=== PATIENT | male | born 1960 | race Hispanic/Latino ===

== ENCOUNTER → 2018-08-03 | Outpatient (CLI) | payer OTHER | END | disposition home or self-care (01) | LOC: RAH 12:32 | PROVIDERS: ATTEND Family Medicine | DX: I73.9 Peripheral vascular disease, unspecified (principal); I70.90 Unspecified atherosclerosis | CPT/HCPCS: 93925 ==

== ENCOUNTER → 2018-12-05 | Outpatient (CLI) | payer OTHER | END | disposition home or self-care (01) | LOC: OIH 13:13 | PROVIDERS: ATTEND Internal Medicine Cardiovascular Disease | DX: Z13.6 Encounter for screening for cardiovascular disorders (principal) | CPT/HCPCS: 75571 ==

== ENCOUNTER → 2019-01-11 | Outpatient (CLI) | payer OTHER ==
[~2019-01-11] VITALS: Ht 172.7 cm; Wt 109.3 kg
[~2019-01-11] MED LIST: REGADENOSON 0.4 MG/5 ML PF SYG IVP SCH
== END | disposition home or self-care (01) ==
LOC: SHCH 07:53
PROVIDERS: ATTEND Internal Medicine Cardiovascular Disease
DX: I25.10 Atherosclerotic heart disease of native coronary artery without angina pectoris (principal)
CPT/HCPCS: 78452; 93017; 96374; A9500 ×2; J2785

== ENCOUNTER 2021-03-05 05:47 | Day surgery (SDC) | payer OTHER ==
[2021-03-02 10:05] VITALS: BP 141/75
[~2021-03-05] VITALS: Ht 175.3 cm; Wt 113.0 kg
[~2021-03-05 05:47] MED LIST changes: +APIX2.5T PO; +ATOR40TA71 PO; +CLOT15C TP; +DULA1.5P SQ; +DULO60CA64 PO; +EMPA25TA PO; +ESOM40CA PO; +HYDR12.54 PO; +INSU3INS3 SQ; +IODOG TP; +LOSA25TA41 PO; +MELO10CA3 PO; +METF-446 PO; +METO-409 PO; +PREG75 PO; -REGADENOSON 0.4 MG/5 ML PF SYG IVP SCH
[2021-03-05] MEDS ORDERED: CEFAZOLIN SODIUM 1 GM VIAL ONE (06:04)
[2021-03-05] MEDS ORDERED: 0.9%NACL 1000ML 1,000 ML IV ONE (06:04)
[2021-03-05 06:10] VITALS: BP 174/97
[2021-03-05] MEDS ORDERED: INSU100I15 SQ (06:30)
[2021-03-05] MEDS ORDERED: CEFAZOLIN 3GM /D5W 100ML 100 ML IV SCH (07:00)
== END 2021-03-05 07:00 | disposition home or self-care (01) ==
LOC: DAH 05:47
PROVIDERS: ATTEND Neurological Surgery
DX: G56.01 Carpal tunnel syndrome, right upper limb (principal); Z20.822 Contact with and (suspected) exposure to COVID-19; Z53.8 Procedure and treatment not carried out for other reasons; Z79.899 Other long term (current) drug therapy
CPT/HCPCS: 82948; 87635; A4215; A4221; A4222; A4223; A4663; C9803; J7030; J0690

== ENCOUNTER 2021-03-17 05:52 | Day surgery (SDC) | payer OTHER ==
[2021-03-16 09:04] VITALS: BP 137/67
[2021-03-17] VITALS (17 sets, daily range): BP systolic 128–160; BP diastolic 73–87
[~2021-03-17] VITALS: Ht 175.3 cm; Wt 111.3 kg
[2021-03-17] MEDS: CEFAZOLIN SODIUM 1 GM VIAL IVP SCH ×2 (05:00→11:20)
[~2021-03-17 05:52] MED LIST changes: +ASPI-1197 PO; -CLOT15C TP; +INSU100I15 SQ; +INSU100V37 SQ; -IODOG TP; +METO-391 PO; -METO-409 PO; +RANO500T3 PO; +SANTO TP
[2021-03-17] MEDS ORDERED: 0.9%NACL 1000ML 1,000 ML IV ONE (06:50)
[2021-03-17] MEDS ORDERED: LIDOCAINE HCL-MPF 0.5% 50ML VIAL IJ ONE (07:00)
[2021-03-17] MEDS ORDERED: FENTANYL CITRATE PF 50 MCG/1 ML 2ML VIAL ONE ×2 (07:01→11:29)
[2021-03-17] MEDS ORDERED: MIDAZOLAM HCL 1 MG/ML 2ML VIAL ONE (07:01)
[2021-03-17] MEDS ORDERED: MEPERIDINE-PF 25 MG/ML SYG ONE (12:25)
== END 2021-03-17 14:05 | disposition home or self-care (01) ==
LOC: DAH 05:52
PROVIDERS: ATTEND Neurological Surgery
DX: G56.01 Carpal tunnel syndrome, right upper limb (principal); Z20.822 Contact with and (suspected) exposure to COVID-19; E11.22 Type 2 diabetes mellitus with diabetic chronic kidney disease; I12.9 Hypertensive chronic kidney disease with stage 1 through stage 4 chronic kidney disease, or unspecified chronic kidney disease; N18.9 Chronic kidney disease, unspecified; K21.9 Gastro-esophageal reflux disease without esophagitis; I25.10 Atherosclerotic heart disease of native coronary artery without angina pectoris; Z86.73 Personal history of transient ischemic attack (TIA), and cerebral infarction without residual deficits
CPT/HCPCS: 82948; 87635; 93005; C9803; J0690; J2175; J2250; J3010; J3490; J7030

== ENCOUNTER → 2022-06-24 | Outpatient (CLI) | payer OTHER ==
[~2022-06-24] MED LIST changes: -APIX2.5T PO; -DULA1.5P SQ; +DULA4.5P SQ; -DULO60CA64 PO; +ESCI-8 PO; -ESOM40CA PO; +FAMO40TA7 PO; +FURO20TA4 PO; +GABA-529 PO; -HYDR12.54 PO; +ICOS1CAP PO; -INSU100I15 SQ; +INSU100I40 SQ; -INSU100V37 SQ; +LISI2.5T13 PO; -LOSA25TA41 PO; -MELO10CA3 PO; +OMEP40CA21 PO; -PREG75 PO; +RIVA2.5T PO; -SANTO TP
[2022-06-24 12:30] LABS: CHOLESTEROL 75 mg/dL (<200); HDL CHOLESTEROL 23 mg/dL (29-71); LDL DIRECT 25 mg/dL (0-99); TRIGLYCERIDES 324 mg/dL (30-200)
== END | disposition home or self-care (01) ==
LOC: LAB 08:14
PROVIDERS: ATTEND Internal Medicine Cardiovascular Disease
DX: E78.5 Hyperlipidemia, unspecified (principal)
CPT/HCPCS: 36415; 80061

== ENCOUNTER → 2022-09-01 | Outpatient (CLI) | payer OTHER ==
[2022-09-01 13:27] LABS: BASOPHILS % (AUTO) 0.5 % (0.0-5.0); EOSINOPHILS % (AUTO) 2.5 % (0.0-8.0); LYMPHOCYTES % (AUTO) 13.1 % (21.0-51.0); MEAN CORPUSCULAR HEMOGLOBIN 24.9 pg (27.0-33.0); MEAN CORPUSCULAR HGB CONC 29.8 g/dL (32.0-36.0); MEAN CORPUSCULAR VOLUME 83.7 fL (79-99); MONOCYTES % (AUTO) 9.6 % (3.0-13.0); NEUTROPHILS % (AUTO) 73.4 % (40.0-77.0); PLATELET COUNT (AUTO) 220 K/uL (130-400); RED BLOOD CELL COUNT(AUTO) 5.26 MIL/uL (4.50-6.20); WHITE BLOOD COUNT (AUTO) 11.7 K/uL (4.8-10.8)
[2022-09-01 13:55] LABS: CREATININE 1.1 mg/dL (0.5-1.5); POTASSIUM 4.6 mmol/L (3.5-5.1); THYROID STIMULATING HORMONE 2.08 uIU/mL (0.36-3.74)
== END | disposition home or self-care (01) ==
LOC: LAB 10:36
PROVIDERS: ATTEND Internal Medicine Cardiovascular Disease
DX: I10 Essential (primary) hypertension (principal); I25.10 Atherosclerotic heart disease of native coronary artery without angina pectoris
CPT/HCPCS: 36415; 80048; 84443; 85025; 85378

== ENCOUNTER → 2022-09-08 | Outpatient (CLI) | payer OTHER ==
[~2022-09-08] MED LIST changes: +IOHEXOL 350 MG/ML 100ML INFUS..BTL IV ONE
== END | disposition home or self-care (01) ==
LOC: RAH 09:48
PROVIDERS: ATTEND Internal Medicine Cardiovascular Disease
DX: K44.9 Diaphragmatic hernia without obstruction or gangrene (principal)
CPT/HCPCS: 71275; Q9967

== ENCOUNTER 2022-09-17 08:41 | Emergency (ER) | payer OTHER ==
[~2022-09-17] VITALS: Ht 175.3 cm; Wt 105.2 kg
[~2022-09-17 08:41] MED LIST changes: -IOHEXOL 350 MG/ML 100ML INFUS..BTL IV ONE
[2022-09-17 09:05] LABS: BASOPHILS % (AUTO) 0.3 % (0.0-5.0); EOSINOPHILS % (AUTO) 1.4 % (0.0-8.0); HEMATOCRIT 44.8 % (42-54); LYMPHOCYTES % (AUTO) 7.1 % (21.0-51.0); MEAN CORPUSCULAR HGB CONC 30.4 g/dL (32.0-36.0); MEAN CORPUSCULAR VOLUME 82.2 fL (79-99); MONOCYTES % (AUTO) 9.6 % (3.0-13.0); NEUTROPHILS % (AUTO) 81.1 % (40.0-77.0); PLATELET COUNT (AUTO) 200 K/uL (130-400); RED BLOOD CELL COUNT(AUTO) 5.45 MIL/uL (4.50-6.20); RED CELL DISTRIBUTION WIDTH 16.8 % (11.0-15.5); WHITE BLOOD COUNT (AUTO) 15.8 K/uL (4.8-10.8)
[2022-09-17 09:21] LABS: CREATININE 1.4 mg/dL (0.5-1.5); POTASSIUM 4.6 mmol/L (3.5-5.1)
[2022-09-17 09:26] LABS: ALBUMIN 3.4 g/dL (3.5-5.0); TOTAL PROTEIN, SERUM 7.4 g/dL (6.0-8.3)
[2022-09-17] MEDS ORDERED: MORPHINE 2 MG SYG IVP SCH (10:00)
[2022-09-17] MEDS ORDERED: IBUP-1493 PO (10:49)
[2022-09-17] MEDS ORDERED: LIDOP TD (10:49)
[2022-09-17 10:59] VITALS: BP 110/76
== END 2022-09-17 11:27 | disposition home or self-care (01) ==
LOC: EDH 08:41
DX: M25.551 Pain in right hip (principal); I10 Essential (primary) hypertension; E11.9 Type 2 diabetes mellitus without complications; Z95.1 Presence of aortocoronary bypass graft; Z79.899 Other long term (current) drug therapy; Z79.82 Long term (current) use of aspirin; Z79.84 Long term (current) use of oral hypoglycemic drugs
CPT/HCPCS: 36415; 71045; 72100; 73502; 80053; 84484; 85025; 93005; 96374

== ENCOUNTER → 2022-12-02 | Outpatient (CLI) | payer OTHER ==
[~2022-12-02] MED LIST changes: +IBUP-1493 PO; +LIDOP TD
[2022-12-02 12:30] LABS: THYROID STIMULATING HORMONE 1.64 uIU/mL (0.36-3.74)
== END | disposition home or self-care (01) ==
LOC: LAB 08:16
PROVIDERS: ATTEND Internal Medicine Cardiovascular Disease
DX: I10 Essential (primary) hypertension (principal); E78.5 Hyperlipidemia, unspecified
CPT/HCPCS: 36415; 80061; 84439; 84443

== ENCOUNTER 2023-01-09 09:24 | Emergency (ER) | payer OTHER ==
[~2023-01-09] VITALS: Ht 175.3 cm; Wt 110.7 kg
[2023-01-09] MEDS ORDERED: MECLIZINE HCL 25 MG TABLET PO ONE (09:30)
[2023-01-09] MEDS ORDERED: ONDANSETRON 4MG INJ IVP ONE (09:30)
[2023-01-09 09:56] LABS: BASOPHILS % (AUTO) 0.7 % (0.0-5.0); EOSINOPHILS % (AUTO) 2.6 % (0.0-8.0); HEMATOCRIT 46.1 % (42-54); LYMPHOCYTES % (AUTO) 14.2 % (21.0-51.0); MEAN CORPUSCULAR HEMOGLOBIN 26.1 pg (27.0-33.0); MEAN CORPUSCULAR HGB CONC 30.8 g/dL (32.0-36.0); MEAN CORPUSCULAR VOLUME 84.6 fL (79-99); MONOCYTES % (AUTO) 10.8 % (3.0-13.0); NEUTROPHILS % (AUTO) 70.6 % (40.0-77.0); PLATELET COUNT (AUTO) 204 K/uL (130-400); RED BLOOD CELL COUNT(AUTO) 5.45 MIL/uL (4.50-6.20); RED CELL DISTRIBUTION WIDTH 15.1 % (11.0-15.5); WHITE BLOOD COUNT (AUTO) 9.4 K/uL (4.8-10.8)
[2023-01-09 10:10] LABS: INR 0.96 (0.85-1.15); PROTHROMBIN TIME 10.5 SEC (9.6-11.6)
[2023-01-09 10:11] LABS: PARTIAL THROMBOPLASTIN TIME 30.4 SEC (26.3-35.5)
[2023-01-09 10:22] LABS: ALBUMIN 3.8 g/dL (3.5-5.0); CREATININE 1.1 mg/dL (0.5-1.5); POTASSIUM 4.3 mmol/L (3.5-5.1); TOTAL PROTEIN, SERUM 7.7 g/dL (6.0-8.3)
[2023-01-09] MEDS ORDERED: ONDA4TAB10 PO (11:34)
[2023-01-09] MEDS ORDERED: MECL-160 PO (11:34)
[2023-01-09 12:03] VITALS: BP 132/78
[2023-01-09 12:32] LABS: B-TYPE NATRIURETIC PEPTIDE 76 pg/mL (0-100)
== END 2023-01-09 12:47 | disposition home or self-care (01) ==
LOC: EDH 09:24
DX: R42 Dizziness and giddiness (principal); R11.2 Nausea with vomiting, unspecified; R51.9 Headache, unspecified; Z79.82 Long term (current) use of aspirin; Z79.84 Long term (current) use of oral hypoglycemic drugs; Z79.899 Other long term (current) drug therapy; Z98.890 Other specified postprocedural states
CPT/HCPCS: 99285; 96374; 70450; 71045; 82550; 83721; 84484; 80053; 83880; 85025; 85610; 85730; 36415; 93005; J2405

== ENCOUNTER 2023-02-07 12:59 | Emergency (ER) | payer OTHER ==
[~2023-02-07] VITALS: Ht 175.3 cm; Wt 109.3 kg
[~2023-02-07 12:59] MED LIST changes: -INSU100I40 SQ; +INSU100I56 SQ; +MECL-160 PO; +ONDA4TAB10 PO
[2023-02-07] MEDS ORDERED: PREDNISONE 20 MG TABLET PO ONE (15:00)
[2023-02-07] MEDS ORDERED: DIAZEPAM 5 MG TABLET PO ONE (15:00)
[2023-02-07] MEDS ORDERED: HYDROCODONE/ACETAMINOPHEN 5/325 MG TAB PO ONE (15:00)
[2023-02-07] MEDS ORDERED: KETOROLAC 60 MG VIAL (30MG/ML) IM ONE (15:00)
[2023-02-07 15:40] VITALS: BP 105/68
[2023-02-07] MEDS ORDERED: METH-811 PO (17:20)
[2023-02-07] MEDS ORDERED: PRED20TA3 PO (17:20)
[2023-02-07] MEDS ORDERED: IBUP-2070 PO (17:20)
== END 2023-02-07 17:47 | disposition home or self-care (01) ==
LOC: EDH 12:59
DX: G89.29 Other chronic pain (principal); M54.42 Lumbago with sciatica, left side; M54.41 Lumbago with sciatica, right side; I10 Essential (primary) hypertension; E11.9 Type 2 diabetes mellitus without complications; K21.9 Gastro-esophageal reflux disease without esophagitis; Z79.4 Long term (current) use of insulin; Z79.84 Long term (current) use of oral hypoglycemic drugs; Z79.82 Long term (current) use of aspirin; Z79.899 Other long term (current) drug therapy
CPT/HCPCS: 99284; 72100; 96372; J1885

== ENCOUNTER 2023-03-24 11:21 | Emergency (ER) | payer OTHER ==
[~2023-03-24] VITALS: Ht 175.3 cm; Wt 105.2 kg
[~2023-03-24 11:21] MED LIST changes: +CYCL10TA16 PO; +HYDR-4060 PO; -IBUP-1493 PO; +IBUP-2070 PO; -LIDOP TD; -MECL-160 PO; +MELO-106 PO; +METH-811 PO; -ONDA4TAB10 PO; +TAMSULOSIN PO; +TIZA-194 PO; +TRAZ-253 PO; +[UNRECOGNIZED DRUG - CODE] SQ
[2023-03-24 12:14] VITALS: BP 92/58; PULSE 99; RESP 16; O2SAT 99
[2023-03-24] MEDS ORDERED: PREDNISONE 20 MG TABLET PO ONE (14:30)
[2023-03-24] MEDS ORDERED: DIAZEPAM 5 MG TABLET PO ONE (14:30)
[2023-03-24] MEDS ORDERED: HYDROCODONE/ACETAMINOPHEN 5/325 MG TAB PO ONE (14:30)
[2023-03-24] MEDS ORDERED: IBUPROFEN 600 MG TABLET PO ONE (14:30)
[2023-03-24] MEDS ORDERED: ONDANSETRON ODT 4MG TAB SL ONE (14:30)
[2023-03-24] MEDS ORDERED: METH-811 PO (15:28)
[2023-03-24] MEDS ORDERED: PRED20TA3 PO (15:28)
== END 2023-03-24 15:43 | disposition home or self-care (01) ==
LOC: EDH 11:21
DX: G89.29 Other chronic pain (principal); M54.9 Dorsalgia, unspecified; M79.604 Pain in right leg; I10 Essential (primary) hypertension; E11.9 Type 2 diabetes mellitus without complications; E78.00 Pure hypercholesterolemia, unspecified; Z79.84 Long term (current) use of oral hypoglycemic drugs; Z79.899 Other long term (current) drug therapy; Z98.890 Other specified postprocedural states

== ENCOUNTER 2023-04-24 11:15 | Emergency (ER) | payer OTHER ==
[~2023-04-24] VITALS: Ht 175.3 cm; Wt 110.7 kg
[~2023-04-24 11:15] MED LIST changes: +PRED20TA3 PO
[2023-04-24] MEDS ORDERED: ONDANSETRON 4MG INJ IVP ONE (12:00)
[2023-04-24] MEDS ORDERED: MORPHINE 4 MG SYG IVP ONE (12:00)
[2023-04-24 12:02] LABS: BASOPHILS # (AUTO) 0.05 K/uL (0.00-0.20); BASOPHILS % (AUTO) 0.6 % (0.0-5.0); EOSINOPHILS # (AUTO) 0.14 K/uL (0.00-0.70); EOSINOPHILS % (AUTO) 1.6 % (0.0-8.0); HEMATOCRIT 44.3 % (42-54); IMMATURE GRANULOCYTE ABSOLUTE 0.13 K/uL (0-1); LYMPHOCYTES # (AUTO) 1.2 K/uL (1.0-4.8); LYMPHOCYTES % (AUTO) 13.2 % (21.0-51.0); MEAN CORPUSCULAR HEMOGLOBIN 27.5 pg (27.0-33.0); MEAN CORPUSCULAR HGB CONC 32.3 g/dL (32.0-36.0); MEAN CORPUSCULAR VOLUME 85.2 fL (79-99); MONOCYTES # (AUTO) 0.9 K/uL (0.1-1.0); MONOCYTES % (AUTO) 10.8 % (3.0-13.0); NEUTROPHILS # (AUTO) 6.3 K/uL (1.8-7.7); NEUTROPHILS % (AUTO) 72.3 % (40.0-77.0); PLATELET COUNT (AUTO) 211 K/uL (130-400); RED CELL DISTRIBUTION WIDTH 15.8 % (11.0-15.5); WHITE BLOOD COUNT (AUTO) 8.7 K/uL (4.8-10.8)
[2023-04-24 12:20] LABS: ALBUMIN 3.5 g/dL (3.5-5.0); BILIRUBIN,TOTAL 0.5 mg/dL (0.2-1.0); CREATININE 1.2 mg/dL (0.5-1.5); TOTAL PROTEIN, SERUM 7.3 g/dL (6.0-8.3)
[2023-04-24] MEDS ORDERED: 0.9% NACL 500ML IV.SOLN 500 ML IV ONE (12:30)
[2023-04-24] MEDS ORDERED: DEXAMETHASONE SOD PHOSPHATE 4 MG/ML 1ML VIAL IVP ONE (13:00)
[2023-04-24] MEDS ORDERED: DIAZEPAM 5 MG/ML 2 ML SYG IV ONE (13:30)
[2023-04-24] MEDS ORDERED: LIDOP TP (15:01)
[2023-04-24] MEDS ORDERED: METH-811 PO (15:01)
[2023-04-24 15:28] VITALS: BP 135/69; PULSE 97; RESP 18; O2SAT 98
== END 2023-04-24 15:28 | disposition home or self-care (01) ==
LOC: EDH 11:15
DX: M48.00 Spinal stenosis, site unspecified (principal); M54.41 Lumbago with sciatica, right side
CPT/HCPCS: 99284; 96374; 96375; 71046; 96361; 80053; 83690; 85025; 36415; 71100; J1100; J7040; J3360; J2405; J2270

== ENCOUNTER → 2023-12-14 | Outpatient (CLI) | payer OTHER ==
[~2023-12-14] MED LIST changes: +LIDOP TP
[2023-12-14 12:08] LABS: CREATININE 0.9 mg/dL (0.5-1.3); POTASSIUM 4.6 mmol/L (3.5-5.1)
== END | disposition home or self-care (01) ==
LOC: LAB 08:23
PROVIDERS: ATTEND Internal Medicine Cardiovascular Disease
DX: I10 Essential (primary) hypertension (principal)
CPT/HCPCS: 36415; 80048

== ENCOUNTER → 2024-08-21 | Outpatient (CLI) | payer OTHER ==
[~2024-08-21] MED LIST changes: -CYCL10TA16 PO; -FURO20TA4 PO; -GABA-529 PO; +GABA300S3 PO; -HYDR-4060 PO; -IBUP-2070 PO; -ICOS1CAP PO; +INSU100V46 SQ; -INSU3INS3 SQ; +IOHEXOL 350 MG/ML 100ML INFUS..BTL IV ONE; -LISI2.5T13 PO; -MELO-106 PO; -METH-811 PO; -METO-391 PO; +MULT-1224 PO; -OMEP40CA21 PO; -PRED20TA3 PO; -RANO500T3 PO; -TAMSULOSIN PO; -TIZA-194 PO; -[UNRECOGNIZED DRUG - CODE] SQ
--- NOTE | 2024-08-21 14:55 | HMCIMG ---
CT CHEST W/WO CONTRAST REASON: ABN FINDINGS IN LUNG FIELD COMPARISON: 09/08/2022. TECHNIQUE: Images are obtained from thoracic inlet through the lung bases following IV contrast, 100 cc Omnipaque 350. TECHNIQUE: Multiple sequential axial images of the chest were obtained from the thoracic inlet through the upper pole of the kidneys without intravenous contrast administration. FINDINGS: There are 2 adjacent focal nodules in the peripheral portion superior segment of the right lower lobe. The largest measures between 6 and 7 mm, the smaller nodule measures 2 mm. These were present on previous exam 09/08/2022 and are unchanged. There are no other focal nodules. There is normal-appearing pulmonary interstitial pattern. There is no bronchiectasis or honeycombing. There are no pleural effusions. Contrast outlines normal appearing hilar and mediastinal structures. There is no mass or lymphadenopathy. There is been previous median sternotomy. Chest wall appears otherwise normal. Visualized upper abdominal structures appear unremarkable. IMPRESSION: 1. 2 adjacent subcentimeter nodules, largest 6 mm, these are unchanged compared to prior study February the graft 2. Otherwise unremarkable pre and post contrast CT chest. rformed with one or more following dose reduction techniques: automated exposure control, adjustment of the mA and kv according to patient's size, or use of a iterative reconstruction technique.
== END | disposition home or self-care (01) ==
LOC: RAH 09:24
PROVIDERS: ATTEND Family Medicine
DX: R91.8 Other nonspecific abnormal finding of lung field (principal)
CPT/HCPCS: 71270; Q9967

== ENCOUNTER 2024-10-24 17:46 | Emergency (ER) | payer OTHER ==
[~2024-10-24] VITALS: Ht 175.3 cm; Wt 110.2 kg
[~2024-10-24 17:46] MED LIST changes: -IOHEXOL 350 MG/ML 100ML INFUS..BTL IV ONE
--- NOTE | 2024-10-24 18:08 | ERN ---
ED Note History of Present Illness Stated Complaint: PAIN NEAR COLLAR BONE Time Seen by MD: 18:02 Time Seen by Midlevel: 18:08 Dictation: Mr. Rea is a 64 year old gentleman with history of CAD/CABG, hypertension, hyperlipidemia, type II DM, GERD, chronic back pain, and obesity who presented to the emergency department this evening for evaluation of right anterior chest pain. He states that for several years he has been having pain to right collar bone. He states Tuesday he started having some pain and was using some topical analgesics. States he woke up this morning with swelling to the area with pain radiating to the right scapula. He denies having any trauma, substernal chest pain, palpitations, edema, shortness of breath, cough abdominal pain, nausea, vomiting, diarrhea, dysuria, headache, or dizziness. PCP: Dr. Hebert Schultz Lead Systems Analyst: Dr. Adolph Olivia Allergies: Coded Allergies: No Known Drug Allergies (Unverified Allergy, Unknown, 03/05/21) Home Meds Active Scripts Lidocaine (Lidoderm Patch 5%) 1 Patch Patch, 1 PATCH TP [id number] PRN for PAIN, #5 ADH.PATCH Prov:SAVANAH SUMMERS BACKBREAKER 04/24/23 Reported Medications Gabapentin (Gabapentin) 300 Mg/6 Ml (6 Ml) Solution, 300 MG PO TID, ML 08/06/24 Insulin Lispro-Aabc (Lyumjev) 100 Unit/Ml Vial, 25 UNIT SQ TIDMEALS, VIAL 08/06/24 Multivits-Minerals/FA/Lycopene (One Daily Men's Health Tablet) 0.4 Mg-600 Mcg Tablet, 1 TAB PO DAILY for 30 Days, #30 TAB 0 Refills 08/06/24 Insulin Lispro (Insulin Lispro Kwikpen U-100) 100 Unit/Ml Insuln.pen, 20 UNIT SQ DAILY, SYRINGE 08/06/24 Trazodone HCl (Desyrel) 50 Mg Tab, 1 TAB PO HS 02/19/23 Atorvastatin Calcium (Atorvastatin Calcium) 40 Mg Tablet, 80 MG PO AM, TAB 05/17/22 Dulaglutide (Trulicity) 4.5 Mg/0.5 Ml Pen.injctr, 4.5 MG SQ weekly 05/17/22 Rivaroxaban (Xarelto) 2.5 Mg Tablet, 2.5 MG PO BID, TAB 04/06/22 Empagliflozin (Jardiance) 25 Mg Tablet, 25 MG PO DAILY, TAB 04/06/22 Escitalopram Oxalate (Escitalopram Oxalate) 10 Mg Tablet, 10 MG PO DAILY, TAB 04/06/22 Famotidine (Famotidine) 40 Mg Tablet, 40 MG PO HS, TAB 04/06/22 Aspirin (Aspirin) 81 Mg Tab.chew, 81 MG PO DAILY, TAB.CHEW 03/16/21 Metformin HCl (Metformin HCl) 1,000 Mg Tablet, 1000 MG PO BID, TAB 03/04/21 Past Medical History Past Medical History: CAD, Diabetes-Type II, High Cholesterol, Heart Disease, Hypertension Additional Past Medical Hx: ACID REFLUX, CHRONIC BACK PAIN Surgical History: CABG, Other Surgical History Other: BACK. TOE, RIGHT WRIST Family History: Negative Social History: Negative, Lives with family Review of System Dictation REVIEW OF SYSTEMS: CONSTITUTIONAL: Patient denies fevers, chills, sweats and weight changes. EYES: Patient denies any visual symptoms. EARS, NOSE, AND THROAT: No difficulties with hearing. No symptoms of rhinitis or sore throat. CARDIOVASCULAR: Patient denies chest pains, palpitations, orthopnea and paroxysmal nocturnal dyspnea. RESPIRATORY: No dyspnea on exertion, no wheezing or cough. GI: No nausea, vomiting, diarrhea, constipation, abdominal pain, hematochezia or melena. : No urinary hesitancy or dribbling. No nocturia or urinary frequency. No abnormal urethral discharge. MUSCULOSKELETAL: Reports pain right clavicle with swelling. States pain radiates to right scapula NEUROLOGIC: No chronic headaches, no seizures. Patient denies numbness, tingling or weakness. PSYCHIATRIC: Patient denies problems with mood disturbance. No problems with anxiety. ENDOCRINE: No excessive urination or excessive thirst. DERMATOLOGIC: Patient denies any rashes or skin changes. Initial Vital Sign VS Vital Signs Date Time Temp Pulse Resp B/P (MAP) Pulse Ox O2 Delivery O2 Flow Rate FiO2 10/24/24 19:33 98.1 104 20 118/72 98 Room Air 0 Physical Exam Dictation Vital signs: Reviewed. Constitutional: No acute distress. Non-toxic appearing. Head/Face: Normocephalic, atraumatic. Eyes: Periorbital areas with no swelling, redness, or edema. Lids and lashes are normal. Conjunctival injection is absent. Sclera anicteric. Pupils equal, round, reactive to light. ENT: Pinnas intact and no signs of trauma or erythema. Ear canals clear and no discharge. TMs no erythema. No nasal discharge or bleeding noted. Oropharynx with no exudate, redness, swelling, masses, exudates, or evidence of obstruction. Uvula midline. Mucous membranes moist. Neck: Trachea midline, no masses palpated, and no cervical lymphadenopathy. No swelling. Supple, full range of motion. Chest/Axilla: No tenderness, no crepitus, no paradoxical movement, no retractions. There is swelling to right anterior chest at the clavicle very tender to palpation. Cardiovascular: Regular rate, regular rhythm, no murmur, no gallops. Symmetric pulses. No peripheral edema. Respiratory: Respirations even and unlabored. Lung sounds clear; no wheezes, rales or rhonchi. Gastrointestinal: Inspection is normal. No distention is appreciated. Bowel sounds are normal. No mass or organomegaly . There is no tenderness. No rebound. No rigidity. No voluntary or involuntary guarding. No Hernandez's sign. Neurological: Normal speech, gross motor function intact, gross sensory function intact. No focal weakness/Paresthesia. Musculoskeletal/Extremities: All extremities have full range of motion, no pain or tenderness on palpation. Symmetric pulses. Integumentary: Intact. Skin is normal color, warm and dry. Cap refill less than 3 seconds. Results (Laboratory/Radiology) X-RAY Comment: PATIENT: HEBERT REA MR#: [id number] : 1960 SEX: M AGE: 64 LOCATION: ED ORDER 07 STATUS: [facility] REPORT#: [id number] SERVICE 04 REASON: clavicle pain ORDERING PHYSICIAN: DENILSON BUTLER NP PROCEDURE: CXR1VW - CHEST 1VW PORTABLE CHEST RADIOGRAPH INDICATION: clavicle pain COMPARISON: None FINDINGS: Median sternotomy wires as well as fixation plates and screws are in appropriate alignment. Heart size is normal. The pulmonary vascularity and cammie appear normal. No abnormal pulmonary parenchymal opacity or consolidation identified. No significant pleural effusion noted. No pneumothorax detected. IMPRESSION: No radiographic evidence for any acute cardiopulmonary process. Intact bilateral clavicles. DICTATED BY: MAGDI MATAMOROS MD DATE: 10/24/241840 ELECTRONICALLY SIGNED BY: MAGDI MATAMOROS MD DATE: 10/24/241843 ED Course ED Course Orders Procedure Category Date Status Time Chest 1vw RAD 10/24/24 Resulted 18:05 Hydrocodone/Apap PHA 10/24/24 Complete 5/325 ([place] 5/325mg) 18:30 Current Medications Medications (Trade) Dose Ordered Sig/Sharif Route PRN Reason Start Time Stop Time Status Last Admin Dose Admin Acetaminophen/ Hydrocodone Bitart (NORco 5/325MG) 1 tab ONCE ONCE PO 10/24/24 18:30 10/24/24 18:31 DC Vital Signs Date Time Temp Pulse Resp B/P (MAP) Pulse Ox O2 Delivery O2 Flow Rate FiO2 10/24/24 19:33 98.1 104 20 118/72 98 Room Air 0 Uneventful ED course. Vital signs stable. X-ray of the chest negative for clavicle fracture no acute findings. He received dose [place] x1 for discomfort and triage nurse applied a sling to the right upper extremity which he said made the pain decreased. He has good color, warmth, movement, and sensation to his right fingers. Continues with some swelling over the right clavicle which is soft. There is no erythema, warmth, or open wound. There is no tenderness to the rest of the chest. You will be discharged home with follow up with his primary care physician. Medical Decision Making MDM MDM: Differential diagnosis: Clavicle fracture, contusion, osteoarthritis Rationale: Tests considered and ordered secondary to shared decision making include: X-ray Previous outside records reviewed: Old ER visits. Risk of complication and/or morbidity or mortality of patient management: None Medications-Per medication reconciliation Need for hospitalization: Patient does not meet criteria for hospitalization. Need for emergency major/minor surgery: No There are no social concerns with this patient. Prescription drug management: OTC Tylenol or ibuprofen, tramadol Prescriptions will include symptomatic care Patient's prior external medical records from other ER visits were reviewed by me as indicated. Prior testing and results from previous visits were reviewed. Prior tests were taken into account with medical decision making and resource utilization, independent historian/historians were used to obtain complete medical history. I independently interpreted the test that were performed, results were reviewed by me and considered findings on radiology if ordered. Medical management and examination interpretation discussions were had by me with other qualified healthcare professionals as indicated for the patient's care. DX & DISP Disposition: Discharge Departure Impression: Primary Impression: Clavicle pain Condition: Stable Scripts Tramadol HCl/Acetaminophen (Tramadol-Acetaminophn 37.5-325) 37.5 Mg-325 Mg Tablet 1 EACH PO q12 hours PRN, #6 TAB 0 Refills Prov: DENILSON BUTLER NP 10/24/24 Tramadol HCl/Acetaminophen (Tramadol-Acetaminophn 37.5-325) 37.5 Mg-325 Mg Tablet 1 EACH PO q 12 hours PRN, #6 TAB 0 Refills Prov: DENILSON BUTLER NP 10/24/24 Additional Instructions: Rest. Gentle mcrzy-qc-tnmihs exercises. Worsening if it provides you comfort. Ice or heat therapy. Hgca-asa-svibhae Tylenol or ibuprofen as needed for discomfort. Tramadol for severe pain. Follow up with your primary care physician later this week for further management. Referrals: HEBERT SCHULTZ MD (PCP) Time of Disposition: 19:41 DENILSON BUTLER NP Oct 24, 2024 18:08
--- NOTE | 2024-10-24 18:44 | HMCIMG ---
PORTABLE CHEST RADIOGRAPH INDICATION: clavicle pain COMPARISON: None FINDINGS: Median sternotomy wires as well as fixation plates and screws are in appropriate alignment. Heart size is normal. The pulmonary vascularity and cammie appear normal. No abnormal pulmonary parenchymal opacity or consolidation identified. No significant pleural effusion noted. No pneumothorax detected. IMPRESSION: No radiographic evidence for any acute cardiopulmonary process. Intact bilateral clavicles.
[2024-10-24 19:33] VITALS: BP 118/72; PULSE 104; RESP 20; TEMP 98
--- NOTE | 2024-10-24 19:37 | NUR ---
PATIENT PROVIDED WITH RIGHT ARM SLING AT THIS TIME
[2024-10-24] MEDS ORDERED: TRAM-543 PO ×2 (19:42→19:43)
[2024-10-24] MEDS: HYDROcodone/APAP 5/325 1 TAB TABLET PO ONE (21:28)
== END 2024-10-24 21:33 | disposition home or self-care (01) ==
LOC: EDH 17:46
DX: M25.511 Pain in right shoulder (principal); E11.9 Type 2 diabetes mellitus without complications; E78.00 Pure hypercholesterolemia, unspecified; I10 Essential (primary) hypertension; I25.10 Atherosclerotic heart disease of native coronary artery without angina pectoris; Z79.01 Long term (current) use of anticoagulants; Z79.4 Long term (current) use of insulin; Z79.82 Long term (current) use of aspirin; Z79.84 Long term (current) use of oral hypoglycemic drugs; Z79.85 Long-term (current) use of injectable non-insulin antidiabetic drugs; Z79.899 Other long term (current) drug therapy; Z95.1 Presence of aortocoronary bypass graft
CPT/HCPCS: 71045; 99283

== ENCOUNTER → 2024-12-04 | Outpatient (CLI) | payer OTHER ==
[~2024-12-04] MED LIST changes: +TRAM-543 PO
[2024-12-04] MEDS: REGADENOSON 0.4 MG/5 ML PF SYG IVP ONE (12:25)
--- NOTE | 2024-12-05 08:34 | HMCSR ---
APPROVED REPORT Height: 5 ft 8in Weight: 240 lbs TEST INDICATIONS OTHER FORMS DYSPNEA The imaging protocol used to acquire images was Rest Tc-99m/stress Tc-99m 1 day Consent: The procedure was explained and understood by the patient. Informerd consent was witnessed Stephanie CHRISTIAN RN First, low dose rest was performed then high dose stress. RESTING DATA: The resting ekg shows: NSR Rest SPECT myocardial perfusion imaging was performed in supine position 88 minutes following the int ravenous injection of 10.2 mCi of Tc-99 Sestamibi. Time of rest injection: 09:23: Date: 12/04/2024 Time of rest imagin:51: Date: 12/04/2024 PHARMACOLOGIC STRESS: Pharmacologic stress test was performed by injecting regadenoson 0.4 mg IV push followed by the intra venous injection of 30.4 mCi of Tc-99 Sestamibi. Time of stress injection: 11:32: Date: 12/04/2024 Time of stress imagin:44: Date: 12/04/2024 Heart Rate at time of stress injection: 92 bpm. Gated Stress SPECT was performed 72 minutes after stress injection. The images were gated to evaluate regional wall motion and calculate left ventricular ejection fracti on. STRESS DETAILS Reason for Termination: Infusion complete Stress Symptoms: Dyspnea, Chest discomfort Max HR Achieved: 99 bpm % of APMHR Achieved: 64 Max Blood Pressure: 122/72 mmHg Stress ECG: NSR Conclusion Partially reversible inferior defect consistent with infarct wiith periinfarct ischemia Lateral ischemia LV ejection fraction 40% Inferior hypokinesis No increased lung uptake Normal LV size at rest and stress
== END | disposition home or self-care (01) ==
LOC: SHCH 08:35
PROVIDERS: ATTEND Internal Medicine Cardiovascular Disease
DX: I25.9 Chronic ischemic heart disease, unspecified (principal); R06.09 Other forms of dyspnea; R07.89 Other chest pain
CPT/HCPCS: 78452; 93017; J2785; A9500 ×2

== ENCOUNTER 2025-02-07 05:39 | Day surgery (SDC) | payer OTHER ==
[2025-02-05 08:54] LABS: IMMATURE GRANULOCYTE ABSOLUTE 0.05 K/uL (0-1); NUCLEATED RED BLOOD CELLS 0.0 % (0.0-0.19); PLATELET COUNT (AUTO) 191 K/uL (130-400); RED BLOOD CELL COUNT(AUTO) 5.32 MIL/uL (4.50-6.20); RED CELL DISTRIBUTION WIDTH 16.9 % (11.0-15.5); WHITE BLOOD COUNT (AUTO) 8.9 K/uL (4.8-10.8)
[2025-02-05 08:57] VITALS: BP 102/55; PULSE 101; RESP 17; TEMP 97.9
[2025-02-05 09:07] LABS: APPEARANCE,URINE CLEAR (CLEAR); GLUCOSE, URINE (UA) >=1000 mg/dL (NEGATIVE); LEUKOCYTE ESTERASE ,URINE NEGATIVE Leu/uL (NEGATIVE); NITRATE,URINE NEGATIVE (NEGATIVE); OCCULT BLOOD,URINE NEGATIVE (NEGATIVE)
[2025-02-05 09:10] LABS: INR 0.99 (0.85-1.15)
[2025-02-05 09:20] LABS: CREATININE 1.3 mg/dL (0.5-1.3); GLOMERULAR FILTR. RATE CALC 61.0 mL/min (>90); GLUCOSE,RANDOM 250.0 mg/dL (70-105); SODIUM SERUM 139.0 mmol/L (136-145); UREA NITROGEN, BLOOD 29.0 mg/dL (7-18)
[2025-02-05 09:31] LABS: ADD UA MICROSCOPIC YES
--- NOTE | 2025-02-05 09:38 | EKG ---
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
[2025-02-05 09:42] LABS: SQUAMOUS EPITHELIAL CELL,UR RARE /HPF (0-2)
--- NOTE | 2025-02-05 09:57 | NUR ---
clarified spoke with annamarie karimi electrician telephone for clarification on med instructions written on order sheet. pt stopped taking blood thinners since tuesday. pt to hold metformin and jardiance 2 days prior and hold asa and xerelto morning of procedure. pt informed to resume blood thinners and hold morning of procedure and also informed to hold jardiance and metformin starting today. pt voiced understanding
--- NOTE | 2025-02-06 03:41 | HMCIMG ---
EXAM: CR Chest, 1 view CLINICAL HISTORY: Preoperative evaluation. COMPARISON: None provided. FINDINGS: The lungs show no infiltrates or other acute findings. No pleural effusion or pneumothorax. The cardiomediastinal silhouette is within normal limits. Status poststernotomy. No acute osseous abnormality. IMPRESSION: No acute cardiopulmonary process is evident. /[place]
[2025-02-07] VITALS (12 sets, daily range): BP systolic 110–133; BP diastolic 54–68; PULSE 83–91; RESP 10–19; TEMP 97.5–97.6
[~2025-02-07] VITALS: Ht 175.3 cm; Wt 108.5 kg
[~2025-02-07 05:39] MED LIST changes: +ACAR25TA2 PO; +ATOR-2 PO; -ATOR40TA71 PO; +DULO30CA52 PO; +ESOM40CA66 PO; -INSU100I56 SQ; +INSU3INS3 SQ; -LIDOP TP; +LOSA25TA41 PO; +METO-408 PO; +NITR0.4T50 SL; -TRAM-543 PO; -TRAZ-253 PO; +[UNRECOGNIZED DRUG - OTHER] PO
[2025-02-07] MEDS ORDERED: LIDOCAINE HCL 400MG/20ML VIAL ONE (07:11)
[2025-02-07] MEDS ORDERED: HEParin-NS 1,000 UNIT/500 ML 1,000 ML IV ONE (07:11)
[2025-02-07] MEDS ORDERED: MIDAZOLAM HCL 1 MG/ML 2ML VIAL ONE (07:11)
[2025-02-07] MEDS ORDERED: NITROGLYCERIN 50MG VIAL ONE (07:15)
[2025-02-07] MEDS ORDERED: IOHEXOL 350 MG/ML 100ML INFUS..BTL IV ONE (07:18)
[2025-02-07] MEDS ORDERED: IOHEXOL-350 50ML VIAL IV ONE (07:26)
[2025-02-07] MEDS ORDERED: GLUCAGON 1MG KIT 1 MG ML IM PRN (08:30)
[2025-02-07] MEDS ORDERED: DEXTROSE 50%-WATER 50 ML DISP.SYRIN IV PRN (08:30)
--- NOTE | 2025-02-28 09:32 | PRN ---
Cath Procedure Report CATH PROCEDURE REPORT CARDIAC CATHETERIZATION REPORT Date of Service: Feb 28, 2025 After informed consent the patient was prepped and draped in the usual fashion. He received a total of 15 cc of xylocaine in the right inguinal area. A six [place] sheath was introduced into the right femoral artery using modified Seldinger technique. A Jaimee four left six [place] diagnostic catheter was advanced over guidewire to the aortic root. Wire was removed and catheter engaged in the left main coronary artery. The left coronary system was visualized. The catheter was removed and a Jaimee four right six [place] diagnostic catheter was advanced over guidewire to the aortic root. Wire was removed and catheter engaged into the lumbee right coronary artery which was visualized multiple planes. The catheter was then manipulated to the origin of the saphenous graft to the PDA which was visualized. The catheter was then manipulated to the origin of the diagonal artery which was visualized catheter was then manipulated to the origin of the saphenous graft to the posterolateral branch which was found to be occluded. The catheter was then manipulated to the origin of the CHO graft to the LAD which was visualized in multiple planes. Postprocedure a sheathogram was performed and Angio-Seal closure device applied. The entire procedure was well tolerated without complications. Findings: The right coronary artery is a right-dominant vessel. It is free of obstruction. The PDA is occluded and fills via a patent saphenous graft. The posterolateral branch is free of obstruction and the saphenous graft to the posterolateral branch has a occluded likely due to progression of disease. The left main coronary artery is free of obstruction the proximal LAD and proximal circumflex artery are both totally occluded. There was a patent saphenous graft to the diagonal artery and a patent CHO graft to the LAD. The LAD distally is a very small caliber vessel. The circumflex artery was not visualized beyond the occlusion. In summary 3/4 grafts patent and medical management advised. Report dictated by JOSE Hook MD, MD Feb 28, 2025 09:32
== END 2025-02-07 13:13 | disposition home or self-care (01) ==
LOC: DAH 05:39
PROVIDERS: ATTEND Internal Medicine Cardiovascular Disease
DX: R94.39 Abnormal result of other cardiovascular function study (principal); I25.118 Atherosclerotic heart disease of native coronary artery with other forms of angina pectoris; I25.810 Atherosclerosis of coronary artery bypass graft(s) without angina pectoris; R06.09 Other forms of dyspnea; K21.9 Gastro-esophageal reflux disease without esophagitis; I10 Essential (primary) hypertension; E78.5 Hyperlipidemia, unspecified; E11.51 Type 2 diabetes mellitus with diabetic peripheral angiopathy without gangrene; Z98.890 Other specified postprocedural states; Z79.82 Long term (current) use of aspirin; Z79.01 Long term (current) use of anticoagulants; Z79.899 Other long term (current) drug therapy
CPT/HCPCS: 80048; 83880; 85025; 85610; 85730; 81001; 36415; 71045; 93005; 93459; 82948; 99156; 99157 ×2; C1894; C1760; J3490 ×2; J2250; J1644; Q9967; A4215 ×2; A4222 ×2; A4663 ×2; A4216 ×2; Q9965 ×2; A4223 ×6; A4554 ×2; A4335 ×2; A4221 ×2; A4606 ×2

== ENCOUNTER 2025-03-13 17:52 | Emergency (ER) | payer OTHER ==
[~2025-03-13] VITALS: Ht 175.3 cm; Wt 110.2 kg
--- NOTE | 2025-03-13 18:07 | ERN ---
ED Note History of Present Illness Stated Complaint: HEADACHES Chief Complaint: Headache Time Seen by MD: 18:03 Dictation: Patient is a 64-year-old male here with a generalized headache onset was one week ago. He states he was moving furniture when he hit the left occiput on a piece of furniture. No LOC no nausea vomiting he does take Xarelto. States he has had not had anything prior to arrival for pain and just came in because his told him he better have it checked out. NIH is 0 gait is steady to triage. No renee or raccoon sign no hemotympanum in triage Allergies: Coded Allergies: No Known Drug Allergies (Unverified Allergy, Unknown, 03/05/21) Home Meds Reported Medications Nitroglycerin (Nitroglycerin) 0.4 Mg Tab.subl, 0.4 MG SL AD PRN for CHEST PAIN, TAB.SL 02/05/25 Insulin Glargine,Hum.rec.anlog (Lantus Solostar) 100 Unit/Ml (3 Ml) Insuln.pen, 55 UNIT SQ AM, SYRINGE 02/05/25 [omega 3 mini] No Conflict Check, 1 CAP PO DAILY 02/05/25 Esomeprazole Magnesium (Esomeprazole Magnesium) 40 Mg Capsule.dr, 40 MG PO AM, CAP 02/05/25 Losartan Potassium (Losartan Potassium) 25 Mg Tablet, 25 MG PO HS, TAB 02/05/25 Duloxetine HCl (Duloxetine HCl) 30 Mg Capsule.dr, 30 MG PO AM, CAP 02/05/25 Acarbose (Acarbose) 25 Mg Tablet, 25 MG PO TID, TAB 02/05/25 Metoprolol Succinate (Metoprolol Succinate) 25 Mg Tab.er.24h, 25 MG PO AM, TAB 02/05/25 Atorvastatin Calcium (Atorvastatin Calcium) 80 Mg Tablet, 80 MG PO AM, TAB 02/05/25 Gabapentin (Gabapentin) 300 Mg/6 Ml (6 Ml) Solution, 300 MG PO TID, ML 08/06/24 Insulin Lispro-Aabc (Lyumjev) 100 Unit/Ml Vial, 35 UNIT SQ TIDMEALS, VIAL 08/06/24 Multivits-Minerals/FA/Lycopene (One Daily Men's Health Tablet) 0.4 Mg-600 Mcg Tablet, 1 TAB PO DAILY for 30 Days, #30 TAB 0 Refills 08/06/24 Dulaglutide (Trulicity) 4.5 Mg/0.5 Ml Pen.injctr, 4.5 MG SQ weekly 05/17/22 Rivaroxaban (Xarelto) 2.5 Mg Tablet, 2.5 MG PO BID, TAB 04/06/22 Empagliflozin (Jardiance) 25 Mg Tablet, 25 MG PO DAILY, TAB 04/06/22 Escitalopram Oxalate (Escitalopram Oxalate) 10 Mg Tablet, 10 MG PO DAILY, TAB 04/06/22 Famotidine (Famotidine) 40 Mg Tablet, 40 MG PO HS, TAB 04/06/22 Aspirin (Aspirin) 81 Mg Tab.chew, 81 MG PO DAILY, TAB.CHEW 03/16/21 Metformin HCl (Metformin HCl) 1,000 Mg Tablet, 1000 MG PO BID, TAB 03/04/21 Past Medical History Past Medical History: Diabetes-Type II, High Cholesterol, Heart Disease, Hypertension Additional Past Medical Hx: ACID REFLUX, CHRONIC BACK PAIN Surgical History: CABG Surgical History Other: LT FOOT 4TH AND 5TH TOE AMP, BACK SX Family History: Negative Social History: Negative, Lives with family RN Note Reviewed/Agreed w/PFSH: Yes Review of System Dictation CONSTITUTIONAL: Negative except for HPI HEAD/FACE: Negative except for HPI EENT: Negative except for HPI RESPIRATORY: Negative except for HPI GASTROINTESTINAL/ABDOMINAL: Negative except for HPI GENITOURINARY: Negative except for HPI MUSCULOSKELETAL: Negative except for HPI INTEGUMENTARY: Negative except for HPI NEUROLOGICAL/PSYCH: Negative except for HPI generalized headache HEMATOLOGIC/LYMPHATIC: Negative except for HPI All Systems Negative, Except as noted above. 13 point review of systems assessed and all negative except for above. Initial Vital Sign VS Vital Signs Date Time Temp Pulse Resp B/P (MAP) Pulse Ox O2 Delivery O2 Flow Rate FiO2 03/13/25 17:54 98.2 98 18 103/59 97 Room Air 0 03/13/25 18:18 21 Physical Exam Dictation Vital Signs reviewed General Appearance: Alert, oriented x 3, mild acute distress, well developed, nourished. Morbid obesity Head and Face: non-traumatic. Mild left occipital tenderness no hematoma no renee or raccoon sign Eyes: PERRL, pink conjunctivas, eyelid no trauma, anterior chamber with arcus senilis. Ears: Pinnas intact and no signs of trauma or erythema ear canals clear and no discharge TM no erythema no hemotympanum Nose: No discharge, no bleeding. Oropharynx: Mouth normal, tongue pink, pharynx clear,no erythema, tonsils no exudates, no abscesses noted, mucous membrane moist Neck: Supple, non-tender, no thyromegaly, no masses, no JVD, no bruits Breast:Deferred Chest:No tenderness, no crepitus, no paradoxical movement, no retractions Lungs:Clear, well-ventilated, symmetric, no rales, no wheezing, no rhonchi, no stridor, good breath sounds bilaterally Heart: Regular rate, regular rhythm, no murmur, no gallops Vascular: no peripheral edema, Abdomen: Soft, positive bowel sounds, nondistended, no guarding, nontender, no rebound, no masses no hepatomegaly, no splenomegaly, no Hernandez's sign, no hernias. Rectal: Deferred Genital: Deferred Neurological: Normal speech, motor function intact, sensory function intact NIH is 0 Musculoskeletal: Neck nontender, full range of motion, back nontender, full range of motion, Extremities: nontender, full range of motion Skin: Color pink, dry, no turgor, no rash, no lacerations, no abrasions, no contusions. Lymphatic: Deferred Results (Laboratory/Radiology) Laboratory/Radiology Signed PATIENT: HELLEN ALVARES MR#: [id number] : 1960 SEX: M AGE: 64 LOCATION: [facility] ORDER 04 STATUS: [facility] REPORT#: [id number] SERVICE 03 REASON: Generalized headache status post head trauma one week ago ORDERING PHYSICIAN: ISELA PERKINS NP PROCEDURE: HEAD WO - CT HEAD/BRAIN W/O CONTRAST EXAM: CT Head Without IV contrast. CLINICAL HISTORY: Generalized headache status post head trauma one week ago TECHNIQUE: Axial computed tomography images of the head/brain without intravenous contrast. COMPARISON: None provided. FINDINGS: BRAIN: Age-appropriate changes. Periventricular white matter changes suggesting chronic microangiopathy No evidence of acute hemorrhage. No mass lesion. No CT evidence for acute territorial infarct. No midline shift or extra-axial collections. VENTRICLES: No hydrocephalus. ORBITS: The orbits are unremarkable. SINUSES AND MASTOIDS: The paranasal sinuses and mastoid air cells are clear. BONES: No fracture. SOFT TISSUES: Unremarkable. IMPRESSION: No acute intracranial abnormality. /[place] Labs Reviewed?: Yes ED Course ED Course Orders Procedure Category Date Status Time Ct Head/Brain W/O CT 03/13/25 Resulted Contrast 18:04 Acetaminophen 500mg PHA 03/13/25 Complete Tab (Tylenol 500mg T 18:30 Current Medications Medications (Trade) Dose Ordered Sig/Sharif Route PRN Reason Start Time Stop Time Status Last Admin Dose Admin Acetaminophen (TYLenol 500MG TAB) 1,000 mg ONCE ONCE PO 03/13/25 18:30 03/13/25 18:31 DC Vital Signs Date Time Temp Pulse Resp B/P (MAP) Pulse Ox O2 Delivery O2 Flow Rate FiO2 03/13/25 18:18 98.2 91 18 103/59 97 Room Air* 0 21 03/13/25 17:54 98.2 98 18 103/59 97 Room Air 0 1835/PATIENT DISCHARGED HOME NEUROLOGICALLY INTACT. PATIENT STATES PAIN IS REDU GORDO AFTER TREATMENT WITH THE TYLENOL. HE IS AWARE HE HAS A POSTTRAUMATIC HEADACHE AND TO FOLLOW UP WITH HIS PRIMARY CA RE DOCTOR NEEDED. Medical Decision Making MDM MEDICAL DECISION-MAKING BASED ON PHYSICAL EXAMINATION CT OF THE HEAD. CT OF THE HEAD NEGATIVE PAIN IS REDUCED WITH TYLENOL PATIENT DISCHARGED HOME WITH POSTTRAUMATIC HEADACHE NEUROLOGICALLY INTACT TOLD SEE HIS PRIMARY CARE DOCTOR TOMORROW DX & DISP Disposition: Discharge Departure Impression: Primary Impression: Post-traumatic headache, not intractable Condition: Stable Additional Instructions: FOLLOW-UP WITH PRIMARY CARE PROVIDER IN 1 TO 2 DAYS. TAKE MEDICATIONS DIRECTED HERE IN THE EMERGENCY ROOM. OKAY TO CONTINUE HOME MEDICATIONS UNLESS OTHERWISE DISCUSSED DURING YOUR VISIT IN THE EMERGENCY ROOM TODAY. RETURN TO YOUR NEAREST EMERGENCY ROOM IF SYMPTOMS WORSEN OR IF THERE IS NO IMPROVEMENT. CALL 911 IF YOU NEED IMMEDIATE ASSISTANCE. TAKE TYLENOL OR MOTRIN CARH-NIX-MIBPQIP NEEDED AND IF NO CONTRAINDICATIONS ARE PRESENT. INCREASE ORAL HYDRATION. A WOUND CULTURE OR URINE CULTURE WAS ORDERED HERE IN THE EMERG ENCY ROOM DEPARTMENT PLEASE FOLLOW-UP WITH PRIMARY CARE PROVIDER AND ADVISE THEM TO GET REPEAT PORTS FROM OUR FACILITY. IF YOU HAD ANY [place] WRAP/SPLINTS THAT WERE APPLIED HERE, PLEASE DO NOT REMOVE THEM UNTIL YOU SEE YOUR PRIMARY CARE OR SPECIALTY. DIET AND ACTIVITY TOLERATED. FOLLOW UP WITH YOUR PRIMARY CARE DOCTOR NEEDED FOR YOUR HEADACHE. Referrals: HELLEN SCHULTZ MD (PCP) Time of Disposition: 18:37 I have reviewed the case, and I agree with, Diagnosis and Plan ISELA PERKINS NP Mar 13, 2025 18:07
[2025-03-13 18:18] VITALS: BP 103/59; PULSE 91; RESP 18; TEMP 98.2; O2SAT 97
--- NOTE | 2025-03-13 18:33 | HMCIMG ---
EXAM: CT Head Without IV contrast. CLINICAL HISTORY: Generalized headache status post head trauma one week ago TECHNIQUE: Axial computed tomography images of the head/brain without intravenous contrast. COMPARISON: None provided. FINDINGS: BRAIN: Age-appropriate changes. Periventricular white matter changes suggesting chronic microangiopathy No evidence of acute hemorrhage. No mass lesion. No CT evidence for acute territorial infarct. No midline shift or extra-axial collections. VENTRICLES: No hydrocephalus. ORBITS: The orbits are unremarkable. SINUSES AND MASTOIDS: The paranasal sinuses and mastoid air cells are clear. BONES: No fracture. SOFT TISSUES: Unremarkable. IMPRESSION: No acute intracranial abnormality. /[place]
[2025-03-17] MEDS ORDERED: KETO10 PO (18:34)
== END 2025-03-13 18:45 | disposition home or self-care (01) ==
LOC: EDH 17:52
DX: G44.309 Post-traumatic headache, unspecified, not intractable (principal); E11.9 Type 2 diabetes mellitus without complications; E78.00 Pure hypercholesterolemia, unspecified; I11.9 Hypertensive heart disease without heart failure; K21.9 Gastro-esophageal reflux disease without esophagitis; Z95.1 Presence of aortocoronary bypass graft; Z79.84 Long term (current) use of oral hypoglycemic drugs; Z79.82 Long term (current) use of aspirin; Z79.899 Other long term (current) drug therapy; Z79.85 Long-term (current) use of injectable non-insulin antidiabetic drugs; Z79.01 Long term (current) use of anticoagulants; W22.03XA Walked into furniture, initial encounter; Y93.89 Activity, other specified; Y92.89 Other specified places as the place of occurrence of the external cause; Y99.8 Other external cause status
CPT/HCPCS: 70450; 99284

== ENCOUNTER → 2025-05-15 | Outpatient (CLI) | payer OTHER ==
[~2025-05-15] MED LIST changes: +ALBUTEROL 0.083% 2.5 MG/3 ML INH IH ONE; +KETO10 PO
== END | disposition home or self-care (01) ==
LOC: RESP 11:34
PROVIDERS: ATTEND Internal Medicine Cardiovascular Disease
DX: R06.02 Shortness of breath (principal)
CPT/HCPCS: 94060

== ENCOUNTER 2025-06-07 21:48 | Observation (INO) | payer OTHER ==
[~2025-06-07] VITALS: Ht 175.3 cm; Wt 113.6 kg
[~2025-06-07 21:48] MED LIST changes: -ALBUTEROL 0.083% 2.5 MG/3 ML INH IH ONE
--- NOTE | 2025-06-07 22:18 | EKG ---
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
[2025-06-07] MEDS: 0.9%NACL 1000ML 1,000 ML IV STA (22:22)
[2025-06-07 23:08] LABS: IMMATURE GRANULOCYTE ABSOLUTE 0.05 K/uL (0-1); NUCLEATED RED BLOOD CELLS 0.0 % (0.0-0.19); PLATELET COUNT (AUTO) 152 K/uL (130-400); RED BLOOD CELL COUNT(AUTO) 4.56 MIL/uL (4.50-6.20); RED CELL DISTRIBUTION WIDTH 15.2 % (11.0-15.5); WHITE BLOOD COUNT (AUTO) 10.8 K/uL (4.8-10.8)
--- NOTE | 2025-06-07 23:11 | HMCIMG ---
EXAM: CT Head without IV contrast. CLINICAL HISTORY: Dizziness. TECHNIQUE: Axial computed tomography images of the head/brain without intravenous contrast. COMPARISON: CT dated March 13, 2025. FINDINGS: BRAIN: No evidence of acute hemorrhage. No mass lesion. No CT evidence for acute territorial infarct. No midline shift or extra-axial collections. Mild generalized brain atrophy and chronic microvascular ischemic white matter disease. VENTRICLES: No hydrocephalus. ORBITS: The orbits are unremarkable. SINUSES AND MASTOIDS: Mild chronic maxillary sinusitis bilaterally. The other paranasal sinuses and mastoid air cells are clear. BONES: No fracture. SOFT TISSUES: Unremarkable. IMPRESSION: No acute intracranial abnormality. Mild generalized brain atrophy and chronic microvascular ischemic white matter disease. Compared to the prior study, there is no significant interval change. /[place]
--- NOTE | 2025-06-07 23:16 | ERN ---
ED Note History of Present Illness Stated Complaint: DIZZINESS Chief Complaint: Dizzy/Light Headed Time Seen by MD: 21:53 Time Seen by Midlevel: 21:58 Dictation: 64-year-old male coming in with complaints of dizziness onset 3-4 hours prior to arrival in the emergency room. Patient states he does has a history of vertigo but did not take his vertigo medication at this time. Patient states the dizziness is worse if he turns his head to the right leg or does not need sudden movements. Nose complaining of lightheaded 2/10. Denies having any blurry vision, nausea, vomiting, unilateral weakness, numbness, chest pain, chest discomfort or shortness a breath. Allergies: Coded Allergies: No Known Drug Allergies (Unverified Allergy, Unknown, 03/05/21) Home Meds Active Scripts Ketorolac Tromethamine (Toradol) 10 Mg Tab, 1 TAB PO Q6HPRN PRN for pain for 5 Days, #20 TAB 0 Refills Prov:ERIC ROWE MD 03/17/25 Reported Medications Nitroglycerin (Nitroglycerin) 0.4 Mg Tab.subl, 0.4 MG SL AD PRN for CHEST PAIN, TAB.SL 02/05/25 Insulin Glargine,Hum.rec.anlog (Lantus Solostar) 100 Unit/Ml (3 Ml) Insuln.pen, 55 UNIT SQ AM, SYRINGE 02/05/25 [omega 3 mini] No Conflict Check, 1 CAP PO DAILY 02/05/25 Esomeprazole Magnesium (Esomeprazole Magnesium) 40 Mg Capsule.dr, 40 MG PO AM, CAP 02/05/25 Losartan Potassium (Losartan Potassium) 25 Mg Tablet, 25 MG PO HS, TAB 02/05/25 Duloxetine HCl (Duloxetine HCl) 30 Mg Capsule.dr, 30 MG PO AM, CAP 02/05/25 Acarbose (Acarbose) 25 Mg Tablet, 25 MG PO TID, TAB 02/05/25 Metoprolol Succinate (Metoprolol Succinate) 25 Mg Tab.er.24h, 25 MG PO AM, TAB 02/05/25 Atorvastatin Calcium (Atorvastatin Calcium) 80 Mg Tablet, 80 MG PO AM, TAB 02/05/25 Gabapentin (Gabapentin) 300 Mg/6 Ml (6 Ml) Solution, 300 MG PO TID, ML 08/06/24 Insulin Lispro-Aabc (Lyumjev) 100 Unit/Ml Vial, 35 UNIT SQ TIDMEALS, VIAL 08/06/24 Multivits-Minerals/FA/Lycopene (One Daily Men's Health Tablet) 0.4 Mg-600 Mcg Tablet, 1 TAB PO DAILY for 30 Days, #30 TAB 0 Refills 08/06/24 Dulaglutide (Trulicity) 4.5 Mg/0.5 Ml Pen.injctr, 4.5 MG SQ weekly 05/17/22 Rivaroxaban (Xarelto) 2.5 Mg Tablet, 2.5 MG PO BID, TAB 04/06/22 Empagliflozin (Jardiance) 25 Mg Tablet, 25 MG PO DAILY, TAB 04/06/22 Escitalopram Oxalate (Escitalopram Oxalate) 10 Mg Tablet, 10 MG PO DAILY, TAB 04/06/22 Famotidine (Famotidine) 40 Mg Tablet, 40 MG PO HS, TAB 04/06/22 Aspirin (Aspirin) 81 Mg Tab.chew, 81 MG PO DAILY, TAB.CHEW 03/16/21 Metformin HCl (Metformin HCl) 1,000 Mg Tablet, 1000 MG PO BID, TAB 03/04/21 Past Medical History Past Medical History: Diabetes-Type II, GERD, High Cholesterol, Heart Disease, Hypertension Additional Past Medical Hx: ACID REFLUX, CHRONIC BACK PAIN, VERTIGO Surgical History: CABG Surgical History Other: BACK SX, LT 4TH AND 5TH TOE AMPUTAIONS Family History: Negative Social History: Negative, Lives with family Review of System Dictation Constitutional: Negative for fever,chills, and weight loss Eyes: Negative for injury, pain,redness, and discharge ENT: Negative for injury,pain or swelling Cardiovascular: Negative for chest pain, palpitations, and edema Respiratory: Negative for shortness of breath, cough, and wheezing, Abdomen/GI: Negative for abdominal pain, nausea, vomiting, diarrhea, and constipation Back: Negative for injury and pain : Negative for injury, bleeding and discharge MS/Extremity: Negative for injury and deformity Skin: Negative for rash, and discoloration Neuro: Negative for headache, weakness, numbness, tingling, and seizure complaining of dizziness Psych: Negative for suicide ideation, homicidal ideation, and hallucinations Review of Systems: was completed Initial Vital Sign VS Vital Signs Date Time Temp Pulse Resp B/P (MAP) Pulse Ox O2 Delivery O2 Flow Rate FiO2 06/07/25 21:50 97.9 87 16 174/85 96 Room Air 06/07/25 22:35 0 21 Physical Exam Dictation General: awake, alert, NAD Head/Face: Normocephalic, atraumatic Eyes: PERRL, EOMI, vision at baseline ENT: oral cavity clear, TMs clear, no signs of infection Neck: Trachea midline, supple, no nuchal rigidity Cardiovascular: RRR, normal S1/S2, No MRGs, no JVD Respiratory: CTAB, no respiratory distress, No rales or wheezes Abdomen: Soft, non-tender, non-distended, normal bowel sounds, no guarding or rebound. Skin: Warm, dry, normal turgor, no rash MS/Extremity: Pulses equal, no cyanosis, neurovascular intact, FROM Neuro: COAx4, GCS 15, strength 5/5, CN 2-12 intact, normal cerebellar exam, normal gait, Psych: Normal behavior, mood, and affect normal Results (Laboratory/Radiology) Laboratory/Radiology Laboratory Tests Test 06/07/25 22:13 06/07/25 23:15 White Blood Count 10.8 K/uL (4.8-10.8) Red Blood Count 4.56 MIL/uL (4.50-6.20) Hemoglobin 12.3 g/dL (14.0-18.0) L Hematocrit 40.1 % (42-54) L Mean Corpuscular Volume 87.9 fL (79-99) Mean Corpuscular Hemoglobin 27.0 pg (27.0-33.0) Mean Corpuscular Hemoglobin Concent 30.7 g/dL (32.0-36.0) L Red Cell Distribution Width 15.2 % (11.0-15.5) Platelet Count 152 K/uL (130-400) Mean Platelet Volume 10.9 fL (7.5-10.5) H Immature Granulocyte % (Auto) 0.5 % (0-1) Neutrophils (%) (Auto) 76.8 % (40.0-77.0) Lymphocytes (%) (Auto) 8.9 % (21.0-51.0) L Monocytes (%) (Auto) 12.0 % (3.0-13.0) Eosinophils (%) (Auto) 1.4 % (0.0-8.0) Basophils (%) (Auto) 0.4 % (0.0-5.0) Neutrophils # (Auto) 8.3 K/uL (1.8-7.7) H Lymphocytes # (Auto) 1.0 K/uL (1.0-4.8) Monocytes # (Auto) 1.3 K/uL (0.1-1.0) H Eosinophils # (Auto) 0.15 K/uL (0.00-0.70) Basophils # (Auto) 0.04 K/uL (0.00-0.20) Absolute Immature Granulocyte (auto 0.05 K/uL (0-1) Nucleated Red Blood Cells 0.0 % (0.0-0.19) Sodium Level 136 mmol/L (136-145) Potassium Level 4.3 mmol/L (3.5-5.1) Chloride Level 99 mmol/L (101-111) L Carbon Dioxide Level 28 mmol/L (21-32) Blood Urea Nitrogen 29 mg/dL (7-18) H Creatinine 1.1 mg/dL (0.5-1.3) Glomerular Filtration Rate Calc 75 mL/min (>90) Random Glucose 189 mg/dL (70-105) H Total Calcium 8.5 mg/dL (8.5-10.1) Urine Color LIGHT-YELLOW (YELLOW) Urine Appearance CLEAR (CLEAR) Urine pH 5.5 (5.0-8.0) Urine Specific [place] 1.026 (1.001-1.031) Urine Protein NEGATIVE mg/dL (NEGATIVE) Urine Glucose (UA) >=1000 mg/dL (NEGATIVE) H Urine Ketones 5 mg/dL (NEGATIVE) H Urine Occult Blood NEGATIVE (NEGATIVE) Urine Nitrate NEGATIVE (NEGATIVE) Urine Bilirubin NEGATIVE mg/dL (NEGATIVE) Urine Urobilinogen 0.2 mg/dL (0.2-1.0) Urine Leukocyte Esterase NEGATIVE [place]/uL Urine RBC 2-5 /HPF (0-1) H Urine WBC 0-1 /HPF (0-1) Urine Bacteria None /HPF (None Seen) Labs Reviewed?: Yes CT Scan Comment: [place] [id number] [id number] IMAGING REPORT Signed PATIENT: HELLEN ALVARES MR#: [id number] : 1960 SEX: M AGE: 64 LOCATION: [facility] ORDER 00 STATUS: REG ER REPORT#: [id number] SERVICE 99 REASON: dizziness ORDERING PHYSICIAN: SIERRA POSEY CNP PROCEDURE: HEAD WO - CT HEAD/BRAIN W/O CONTRAST EXAM: CT Head without IV contrast. CLINICAL HISTORY: Dizziness. TECHNIQUE: Axial computed tomography images of the head/brain without intravenous contrast. COMPARISON: CT dated March 13, 2025. FINDINGS: BRAIN: No evidence of acute hemorrhage. No mass lesion. No CT evidence for acute territorial infarct. No midline shift or extra-axial collections. Mild generalized brain atrophy and chronic microvascular ischemic white matter disease. VENTRICLES: No hydrocephalus. ORBITS: The orbits are unremarkable. SINUSES AND MASTOIDS: Mild chronic maxillary sinusitis bilaterally. The other paranasal sinuses and mastoid air cells are clear. BONES: No fracture. SOFT TISSUES: Unremarkable. IMPRESSION: No acute intracranial abnormality. Mild generalized brain atrophy and chronic microvascular ischemic white matter disease. Compared to the prior study, there is no significant interval change. /[place] DICTATED BY: MARIELA ARGUETA Jr., MD DATE: 06/08/2510 ELECTRONICALLY SIGNED BY: MARIELA ARGUETA Jr., MD DATE: 06/08/2510 ED Course ED Course Orders Procedure Category Date Status Time Cbc With Differential LAB 06/07/25 In Process 21:54 Basic Metabolic Panel LAB 06/07/25 Complete 21:54 Urinalysis Profile LAB 06/07/25 In Process 21:54 Troponin I High LAB 06/07/25 In Process Sensitivity 21:54 12 Lead Ekg Tracing- EKG 06/07/25 Complete Technical 21:54 Ct Head/Brain W/O CT 06/07/25 Resulted Contrast 22:00 0.9%Nacl 1000ml (Ns PHA 06/07/25 In Process 1000ml) 22:00 Meclizine Hcl 25 Mg PHA 06/07/25 Complete (Antivert 25 Mg) 22:00 Current Medications Medications (Trade) Dose Ordered Sig/Sharif Route PRN Reason Start Time Stop Time Status Last Admin Dose Admin Meclizine HCl (ANTIvert 25 mg) 25 mg ONCE ONCE PO 06/07/25 22:00 06/07/25 22:10 DC 06/07/25 22:22 Sodium Chloride 1,000 ml @ 100 mls/hr Q10H STAT IV 06/07/25 22:00 06/08/25 07:59 06/07/25 22:22 Vital Signs Date Time Temp Pulse Resp B/P (MAP) Pulse Ox O2 Delivery O2 Flow Rate FiO2 06/07/25 22:35 99.1 75 166/55 Room Air* 0 21 06/07/25 21:50 97.9 87 16 174/85 96 Room Air Medical Decision Making MDM MDM: 64-year-old male coming in with complaints of dizziness onset 3-4 hours prior to arrival in the emergency room. Patient states he does has a history of vertigo but did not take his vertigo medication at this time. Patient states the dizziness is worse if he turns his head to the right leg or does not need sudden movements. Nose complaining of lightheaded 2/10. Denies having any blurry vision, nausea, vomiting, unilateral weakness, numbness, chest pain, chest discomfort or shortness a breath. NIH 0 with the time of triage. CBC shows no leukocytosis, no anemia, no thrombocytopenia. Chemistries feels evidence of dehydration. After fluids and meclizine patient states he is still feeling dizzy. Patient will be admitted for dehydration, and vertigo. He will see Dr. [facility] [place] for admitting team. Okay to admit patient. Differential diagnosis:, dehydration, electrolyte abnormality, Rationale: Tests considered and ordered secondary to shared decision making include: labs, ECG and radiology Previous outside records reviewed: Old ER visits. Risk of complication and/or morbidity or mortality of patient management: None Medications-Per medication reconciliation Need for hospitalization: Patient does meet criteria for hospitalization. Need for emergency major/minor surgery: No There are no social concerns with this patient. Prescription drug management Prescriptions will include symptomatic care Patient's prior external medical records from other ER visits were reviewed by me as indicated. Prior testing and results from previous visits were reviewed. Prior tests were taken into account with medical decision making and resource utilization, independent historian/historians were used to obtain complete medical history. I independently interpreted the test that were performed, results were reviewed by me and considered findings on radiology if ordered. Medical management and examination interpretation discussions were had by me with other qualified healthcare professionals as indicated for the patient's care. DX & DISP Disposition: Inpatient Decision to Admit Date: Jun 07, 2025 Decision to Admit Time: 23:58 Departure Impression: Primary Impression: Vertigo Additional Impression: Dehydration Condition: Stable Referrals: HELLEN SCHULTZ MD (PCP) Time of Disposition: 23:59 I have reviewed the case, and I agree with, Diagnosis and Plan SIERRA POSEY CNP Jun 07, 2025 23:16
[2025-06-07 23:21] LABS: CREATININE 1.1 mg/dL (0.5-1.3); GLOMERULAR FILTR. RATE CALC 75.0 mL/min (>90); GLUCOSE,RANDOM 189.0 mg/dL (70-105); SODIUM SERUM 136.0 mmol/L (136-145); UREA NITROGEN, BLOOD 29.0 mg/dL (7-18)
[2025-06-07 23:35] LABS: APPEARANCE,URINE CLEAR (CLEAR); GLUCOSE, URINE (UA) >=1000 mg/dL (NEGATIVE); LEUKOCYTE ESTERASE ,URINE NEGATIVE Leu/uL (NEGATIVE); NITRATE,URINE NEGATIVE (NEGATIVE); OCCULT BLOOD,URINE NEGATIVE (NEGATIVE)
[2025-06-07 23:48] LABS: ADD UA MICROSCOPIC YES
[2025-06-08] VITALS (9 sets, daily range): BP systolic 116–157; BP diastolic 48–76; PULSE 78–94; RESP 18–20; TEMP 97.5–98.5; O2SAT 95–98
[2025-06-08] MEDS: LACTATED RINGERS 1000ML 1,000 ML IV SCH (02:25)
[2025-06-08] MEDS ORDERED: PoTASSium chl 10% ELIXIR 20MEQ 20 MEQ/15 ML UDCUP PO PRN (02:30)
[2025-06-08] MEDS ORDERED: HYDROcodone/APAP 5/325 1 TAB TABLET PO PRN ×3 (02:30→06:30)
[2025-06-08] MEDS ORDERED: PoTASSium chloRIDE 20MEQ ER 20 MEQ ERTAB PO PRN (02:30)
--- NOTE | 2025-06-08 02:37 | HP ---
[facility] HISTORY & PHYSICAL Date Patient Seen: Jun 08, 2025 Time of Visit: 02:31 Supervising Physician: Dr. Ricardo Martin Primary Care Physician: Dr. Lai Outpatient Specialists: [ ] Inpatient Consults: [ ] PROBLEM LIST: Chronic Vertigo, POA Hypertension, POA Hyperlipidemia, POA DM type 2, with hyperglycemia, POA Class three obesity, BMI of 35.9 History of CAD s/p five-vessel CABG PLAN: Admit to medical-surgical floor VS per unit protocol Heart healthy diet Keep serum glucose less than 150 ISS and fingerstick per unit protocol Keep SBP less than 160 P.r.n. hydralazine labetalol Safety precautions Continue with med meclizine Bilateral SCDs Reconcile home medications CBC, CMP, magnesium level daily HPI: 64-year-old male with past medical history of hypertension, DM type 2, hyperlipidemia, obesity, CAD s/p CABG who presented to ED with complaint of on and off lightheadedness/dizziness. Patient was seen and examined in ED with no relatives present at bedside. Apparently patient has been diagnosed with vertigo and this problem is not new to him. There is no associated palpitation, headache, nausea or vomiting, or confusion. In ED stat head CT was done showed no acute intracranial abnormality, CBC and CMP were unremarkable. At present patient is currently hemodynamically stable, on room air with appropriate oxygen saturation, still with mild dizziness mostly when he turns his head. Patient denies any smoking, alcohol intake, or illicit drug use. Denies any headache, chest pain, shortness of breath, fever, flu-like symptoms, or abdominal pain. PAST MEDICAL HX: see above PAST SURGICAL HX: noncontributory SOCIAL HISTORY: No tobacco, ETOH, or illicit drug use Coded Allergies: No Known Drug Allergies (Unverified Allergy, Unknown, 03/05/21) REVIEW OF SYSTEMS: 12 point ROS reviewed with patient. Pertinent positives mentioned above. Otherwise negative. PHYSICAL EXAM: GENERAL: alert, weak, awake oriented x 3 HEENT: EOMI, Sclera non icteric, moist mucosa NECK: Supple, no JVD, trachea midline LUNGS: Clear breath sounds bilaterally. No wheezes HEART: Regular rate and rhythm. Normal S1 and S2, without murmurs ABD: Abdomen soft, nontender. Bowel sounds present EXT: No clubbing cyanosis or edema NEURO: Alert and oriented to person, follows commands Vital Signs (last 8hr) Date Time Temp Pulse Resp B/P (MAP) Pulse Ox O2 Delivery O2 Flow Rate FiO2 06/08/25 01:40 98.4 70 16 156/62 96 Room Air* 0 21 06/07/25 22:35 99.1 75 166/55 Room Air* 0 21 06/07/25 21:50 97.9 87 16 174/85 96 Room Air LABS: Hematology Labs: Test 06/07/25 22:13 Range/Units White Blood Count 10.8 4.8-10.8 K/uL Red Blood Count 4.56 4.50-6.20 MIL/uL Hemoglobin 12.3 L 14.0-18.0 g/dL Hematocrit 40.1 L 42-54 % Mean Corpuscular Volume 87.9 79-99 fL Mean Corpuscular Hemoglobin 27.0 27.0-33.0 pg Mean Corpuscular Hemoglobin Concent 30.7 L 32.0-36.0 g/dL Red Cell Distribution Width 15.2 11.0-15.5 % Platelet Count 152 130-400 K/uL Mean Platelet Volume 10.9 H 7.5-10.5 fL Immature Granulocyte % (Auto) 0.5 0-1 % Neutrophils (%) (Auto) 76.8 40.0-77.0 % Lymphocytes (%) (Auto) 8.9 L 21.0-51.0 % Monocytes (%) (Auto) 12.0 3.0-13.0 % Eosinophils (%) (Auto) 1.4 0.0-8.0 % Basophils (%) (Auto) 0.4 0.0-5.0 % Neutrophils # (Auto) 8.3 H 1.8-7.7 K/uL Lymphocytes # (Auto) 1.0 1.0-4.8 K/uL Monocytes # (Auto) 1.3 H 0.1-1.0 K/uL Eosinophils # (Auto) 0.15 0.00-0.70 K/uL Basophils # (Auto) 0.04 0.00-0.20 K/uL Absolute Immature Granulocyte (auto 0.05 0-1 K/uL Nucleated Red Blood Cells 0.0 0.0-0.19 % White Cell Morphology Comment See comments Red Blood Cell Morphology ANISO 1+ Chemistry Labs: Test 06/07/25 22:13 Range/Units Sodium Level 136 136-145 mmol/L Potassium Level 4.3 3.5-5.1 mmol/L Chloride Level 99 L 101-111 mmol/L Carbon Dioxide Level 28 21-32 mmol/L Blood Urea Nitrogen 29 H 7-18 mg/dL Creatinine 1.1 0.5-1.3 mg/dL Glomerular Filtration Rate Calc 75 >90 mL/min Random Glucose 189 H 70-105 mg/dL Total Calcium 8.5 8.5-10.1 mg/dL Troponin I High Sensitivity 14 4-75 ng/L DIAGNOSTICS / RADIOLOGY RESULTS: PROCEDURE: HEAD WO - CT HEAD/BRAIN W/O CONTRAST EXAM: CT Head without IV contrast. CLINICAL HISTORY: Dizziness. TECHNIQUE: Axial computed tomography images of the head/brain without intravenous contrast. COMPARISON: CT dated March 13, 2025. FINDINGS: BRAIN: No evidence of acute hemorrhage. No mass lesion. No CT evidence for acute territorial infarct. No midline shift or extra-axial collections. Mild generalized brain atrophy and chronic microvascular ischemic white matter disease. VENTRICLES: No hydrocephalus. ORBITS: The orbits are unremarkable. SINUSES AND MASTOIDS: Mild chronic maxillary sinusitis bilaterally. The other paranasal sinuses and mastoid air cells are clear. BONES: No fracture. SOFT TISSUES: Unremarkable. IMPRESSION: No acute intracranial abnormality. Mild generalized brain atrophy and chronic microvascular ischemic white matter disease. Compared to the prior study, there is no significant interval change. /[place] PLAN NEURO: Minimize central acting medications as possible. Maintain fall precautions, adequate lighting during the day PULMONARY: Supplemental 02 as needed. Maintain aspiration precautions at all times CARDIOVASCULAR: Follow hemodynamics. Vital signs per facility protocol GI & NUTRITION: Continue with nutritional support. Continue stool softeners and laxatives as needed. KIDNEYS & ELECTROLYTES: Strict monitoring of intake, output and overall fluid balance. Avoid nephrotoxic medications to the extent possible. Medications to be dosed according to renal function. Monitor electrolytes and replace as needed ENDOCRINE: Maintain blood glucose between 100-180 at all times. Hypoglycemia protocol in place INFECTIOUS DISEASE: Trend temperature, WBC and procalcitonin level Follow cultures, deescalate antibiotics as soon as possible. Panculture if new onset fever ONCOLOGY/HEMATOLOGY/COAGULATION: Monitor for s/s of bleeding Monitor hemoglobin, coagulation studies as needed SKIN: Pressure ulcer prevention per facility protocol Specialty mattress ORTHO/REHAB: Continue PT/OT Prophylaxis: Continue GI and DVT prophylaxis Code Status: Full Resuscitation Disposition: TBD Supervising physician: Ricardo Martin MD NONOG,MILO Beck AGACNP Jun 08, 2025 02:37
--- NOTE | 2025-06-08 03:03 | NUR ---
ORTHO VS LYING- 145/66 SITTING-153/66 STANDIN/67
--- NOTE | 2025-06-08 03:05 | NUR ---
HOME MEDS UNRECONCILE: NIL AVAIL AT BEDSIDE
--- NOTE | 2025-06-08 03:15 | NUR ---
PATIENT ARRIVED TO MED SURG UNIT, ALERT AND ORIENTED X 4, DENIES PAIN OR DISCOMFORT AT THIS TIME. NO FAMILY AT BEDSIDE. REPORT RECEIVED FROM ANGELY.
--- NOTE | 2025-06-08 09:50 | NUR ---
MET W PATIENT /SPOUSE; PREVIOUSLY INDEPENDENT, DRIVES, NO DME OR SERVICES, SPOUSE TO PROVIDE TRANSPORT HOME, DENIES FINANCIAL STRAIN CM AVAILABLE IF DC NEEDS CHANGE Addendum: 06/08/25 at 1943 by LEA REYNOSO RN CM Amended: Links added.
[2025-06-08] MEDS ORDERED: IBUP-1492 PO (10:59)
[2025-06-08] MEDS: ALBUTEROL 0.083% 2.5 MG/3 ML INH IH PRN (11:12)
[2025-06-08] MEDS ORDERED: MECL-226 PO (15:10)
--- NOTE | 2025-06-08 15:11 | DS ---
[facility] DISCHARGE SUMMARY Date Patient Seen: Jun 08, 2025 Time of Visit: 15:11 Supervising Physician: Dr. Phil Gerber Primary Care Physician: Dr. Hebert Lai Outpatient Specialists: [ ] Inpatient Consults: NA PROBLEM LIST: Chronic Vertigo Hypertension Hyperlipidemia DM type 2, with hyperglycemia History of CAD with CABG Class three obesity, BMI of 35.9 HPI (per admitting provider): 64-year-old male with past medical history of hypertension, DM type 2, hyperlipidemia, obesity, CAD s/p CABG who presented to ED with complaint of on and off lightheadedness/dizziness. Patient was seen and examined in ED with no relatives present at bedside. Apparently patient has been diagnosed with vertigo and this problem is not new to him. There is no associated palpitation, headache, nausea or vomiting, or confusion. In ED stat head CT was done showed no acute intracranial abnormality, CBC and CMP were unremarkable. At present patient is currently hemodynamically stable, on room air with appropriate oxygen saturation, still with mild dizziness mostly when he turns his head. Patient denies any smoking, alcohol intake, or illicit drug use. Denies any headache, chest pain, shortness of breath, fever, flu-like symptoms, or abdominal pain. HOSPITAL COURSE: Patient was admitted due to dizziness due to vertigo, orthostasis ruled out and CT head negative for any acute findings. Patient is AAOX3. Currently on room air. Denies any dizziness and states he take meclizine at home. at bedside. Stable for discharge. Advised to follow up with PCP, verbalized understanding. New Medications: Meclizine HCl (Meclizine HCl) 12.5 Mg Tablet 25 MG PO TID, #90 TAB Continued Medications: Acarbose (Acarbose) 25 Mg Tablet 25 MG PO TID, TAB Aspirin (Aspirin) 81 Mg Tab.chew 81 MG PO DAILY, TAB.CHEW Atorvastatin Calcium (Atorvastatin Calcium) 80 Mg Tablet 80 MG PO AM, TAB Dulaglutide (Trulicity) 4.5 Mg/0.5 Ml Pen.injctr 4.5 MG SQ weekly Empagliflozin (Jardiance) 25 Mg Tablet 25 MG PO DAILY, TAB Escitalopram Oxalate (Escitalopram Oxalate) 10 Mg Tablet 10 MG PO DAILY, TAB Esomeprazole Magnesium (Esomeprazole Magnesium) 40 Mg Capsule.dr 40 MG PO AM, CAP Famotidine (Famotidine) 40 Mg Tablet 40 MG PO HS, TAB Gabapentin (Gabapentin) 300 Mg/6 Ml (6 Ml) Solution 300 MG PO TID, ML Ibuprofen (Ibuprofen) 600 Mg Tablet 600 MG PO Q6H PRN for PAIN, TAB Insulin Glargine,Hum.rec.anlog (Lantus Solostar) 100 Unit/Ml (3 Ml) Insuln.pen 55 UNIT SQ AM, SYRINGE Insulin Lispro-Aabc (Lyumjev) 100 Unit/Ml Vial 35 UNIT SQ TIDMEALS, VIAL Losartan Potassium (Losartan Potassium) 25 Mg Tablet 25 MG PO HS, TAB Metformin HCl (Metformin HCl) 1,000 Mg Tablet 1000 MG PO BID, TAB Metoprolol Succinate (Metoprolol Succinate) 25 Mg Tab.er.24h 25 MG PO AM, TAB Multivits-Minerals/FA/Lycopene (One Daily Men's Health Tablet) 0.4 Mg-600 Mcg Tablet 1 TAB PO DAILY for 30 Days, #30 TAB 0 Refills [omega 3 mini] () 1 CAP PO DAILY Rivaroxaban (Xarelto) 2.5 Mg Tablet 2.5 MG PO BID, TAB PHYSICAL EXAM: GENERAL: alert, weak, awake oriented x 3 HEENT: EOMI, Sclera non icteric, moist mucosa NECK: Supple, no JVD, trachea midline LUNGS: Clear breath sounds bilaterally. No wheezes HEART: Regular rate and rhythm. Normal S1 and S2, without murmurs ABD: Abdomen soft, nontender. Bowel sounds present EXT: No clubbing cyanosis or edema NEURO: AAOX3, follows commands FOLLOW-UP: Follow-up with PCP in 2-3 days RECOMMENDATIONS: See Discharge Instructions This case was seen and discussed with my supervising physician. More than 30 minutes spent on discharge process, including evaluation of the patient, discussion with nursing staff, medication reconciliation and follow-up appointments JULES CALDWELL Jun 08, 2025 15:11
[2025-06-08] MEDS ORDERED: DULAGLUTIDE 4.5 MG SQ SCH (16:00)
--- NOTE | 2025-06-08 16:20 | NUR ---
DISCHARGE PATIENT DISCHARGE PATIENT PER MD ORDER. PERIPHERIAL IV REMOVED, CATHETER INTACT. DISCHARGE INSTRUCTIONS GIVEN. PATIENT AWARE TO FOLLOW UP WITH PCP IN 2-3 DAYS. ANSWERED ALL QUESTIONS. PATIENT VERBALIZED UNDERSTANDING.
[2025-06-08] MEDS ORDERED: ACARBOSE 25 MG TABLET PO SCH (21:00)
[2025-06-08] MEDS ORDERED: FAMOTIDINE 20MG TAB PO SCH (21:00)
[2025-06-08] MEDS ORDERED: RIVAROXABAN 2.5 MG TABLET PO SCH (21:00)
[2025-06-08] MEDS ORDERED: GABAPENTIN 300 MG CAPSULE PO SCH (21:00)
[2025-06-09] MEDS ORDERED: EMPAGLIFLOZIN 25MG TABLET PO SCH (09:00)
[2025-06-09] MEDS ORDERED: ASPIRIN 81MG CHEW TAB PO SCH (09:00)
== END 2025-06-08 16:45 | disposition home or self-care (01) ==
LOC: EDH 21:48 → EDHIP 06-08 02:10 → INTOOBSV 06-08 02:10 → 4CH 06-08 03:15
PROVIDERS: ADMIT Internal Medicine; ATTEND Internal Medicine
DX: R42 Dizziness and giddiness (principal); G89.29 Other chronic pain; K21.9 Gastro-esophageal reflux disease without esophagitis; E11.65 Type 2 diabetes mellitus with hyperglycemia; E78.00 Pure hypercholesterolemia, unspecified; E86.0 Dehydration; I10 Essential (primary) hypertension; G31.9 Degenerative disease of nervous system, unspecified; I25.10 Atherosclerotic heart disease of native coronary artery without angina pectoris; E66.813 Obesity, class 3; Z68.35 Body mass index [BMI] 35.0-35.9, adult; Z79.01 Long term (current) use of anticoagulants; Z79.4 Long term (current) use of insulin; Z79.82 Long term (current) use of aspirin; Z79.84 Long term (current) use of oral hypoglycemic drugs; Z79.85 Long-term (current) use of injectable non-insulin antidiabetic drugs; Z95.1 Presence of aortocoronary bypass graft; Z79.899 Other long term (current) drug therapy; Z98.890 Other specified postprocedural states
CPT/HCPCS: 99285; 84484; 80048; 85025; 81001; 36415; 70450; 93005; 82948 ×3; 94640; J7030; G0378 ×15; J1815 ×2

== ENCOUNTER 2025-07-11 03:56 | Emergency (ER) | payer OTHER ==
[~2025-07-11] VITALS: Ht 175.3 cm; Wt 109.8 kg
[2025-07-11] MEDS: 0.9%NACL 1000ML 1,000 ML IV SCH (04:18)
[2025-07-11 04:21] LABS: IMMATURE GRANULOCYTE ABSOLUTE 0.06 K/uL (0-1); NUCLEATED RED BLOOD CELLS 0.0 % (0.0-0.19); PLATELET COUNT (AUTO) 203 K/uL (130-400); RED BLOOD CELL COUNT(AUTO) 5.34 MIL/uL (4.50-6.20); RED CELL DISTRIBUTION WIDTH 14.7 % (11.0-15.5); WHITE BLOOD COUNT (AUTO) 11.2 K/uL (4.8-10.8)
[2025-07-11 04:34] LABS: CREATININE 1.1 mg/dL (0.5-1.3); GLOMERULAR FILTR. RATE CALC 74.0 mL/min (>90); GLUCOSE,RANDOM 259.0 mg/dL (70-105); SODIUM SERUM 137.0 mmol/L (136-145); UREA NITROGEN, BLOOD 27.0 mg/dL (7-18)
--- NOTE | 2025-07-11 04:49 | ERN ---
General Chief Complaint: Abdominal Pain Stated Complaint: C/O ABD PAIN WITH N X V Time Seen by MD: 03:59 History of Present Illness Initial Comments 65-year-old male history of coronary artery disease, hypertension, hyperlipidemia, diabetes here for evaluation of vomiting. Patient states the vomiting started earlier today. He had similar symptoms about two weeks ago when he had vomiting and diarrhea. States he has had seven episodes of vomiting since last night. No fever no cough no shortness a breath. No chest pain or palpitations. Allergies: Coded Allergies: No Known Drug Allergies (Unverified Allergy, Unknown, 03/05/21) Home Meds Active Scripts Meclizine HCl (Meclizine HCl) 12.5 Mg Tablet, 25 MG PO TID, #90 TAB Prov:JULES CALDWELL NETWORK COORDINATOR 06/08/25 Reported Medications Ibuprofen (Ibuprofen) 600 Mg Tablet, 600 MG PO Q6H PRN for PAIN, TAB 06/08/25 Insulin Glargine,Hum.rec.anlog (Lantus Solostar) 100 Unit/Ml (3 Ml) Insuln.pen, 55 UNIT SQ AM, SYRINGE 02/05/25 [omega 3 mini] No Conflict Check, 1 CAP PO DAILY 02/05/25 Esomeprazole Magnesium (Esomeprazole Magnesium) 40 Mg Capsule.dr, 40 MG PO AM, CAP 02/05/25 Losartan Potassium (Losartan Potassium) 25 Mg Tablet, 25 MG PO HS, TAB 02/05/25 Acarbose (Acarbose) 25 Mg Tablet, 25 MG PO TID, TAB 02/05/25 Metoprolol Succinate (Metoprolol Succinate) 25 Mg Tab.er.24h, 25 MG PO AM, TAB 02/05/25 Atorvastatin Calcium (Atorvastatin Calcium) 80 Mg Tablet, 80 MG PO AM, TAB 02/05/25 Gabapentin (Gabapentin) 300 Mg/6 Ml (6 Ml) Solution, 300 MG PO TID, ML 08/06/24 Insulin Lispro-Aabc (Lyumjev) 100 Unit/Ml Vial, 35 UNIT SQ TIDMEALS, VIAL 08/06/24 Multivits-Minerals/FA/Lycopene (One Daily Men's Health Tablet) 0.4 Mg-600 Mcg Tablet, 1 TAB PO DAILY for 30 Days, #30 TAB 0 Refills 08/06/24 Dulaglutide (Trulicity) 4.5 Mg/0.5 Ml Pen.injctr, 4.5 MG SQ weekly 05/17/22 Rivaroxaban (Xarelto) 2.5 Mg Tablet, 2.5 MG PO BID, TAB 04/06/22 Empagliflozin (Jardiance) 25 Mg Tablet, 25 MG PO DAILY, TAB 04/06/22 Escitalopram Oxalate (Escitalopram Oxalate) 10 Mg Tablet, 10 MG PO DAILY, TAB 04/06/22 Famotidine (Famotidine) 40 Mg Tablet, 40 MG PO HS, TAB 04/06/22 Aspirin (Aspirin) 81 Mg Tab.chew, 81 MG PO DAILY, TAB.CHEW 03/16/21 Metformin HCl (Metformin HCl) 1,000 Mg Tablet, 1000 MG PO BID, TAB 03/04/21 Past Medical History Past Medical History: Diabetes-Type II, High Cholesterol, Hypertension, Other Medical History Other: ACID REFLUX; OPEN HEART SX Past Surgical History: Other Surgical History Other: OPEN HEART SX; 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 Physical Exam Physical Exam Dictation GENERAL APPEARANCE NAD, activity normal for age, well developed/ well nourished, no cyanosis, pallor, or diaphoresis. EYES lids/conjunctiva normal. EARS/NOSE/THROAT Mucous membranes moist, nares normal, lips/teeth normal uvula midline without oral pharyngeal erythema, exudate or swelling TMs normal bilaterally. No lymphangitis/lymphedema. HEAD/NECK normocephalic atraumatic, no facial trauma, neck is supple. RESPIRATORY respiratory effort normal, speaks in full sentences, no tripod position, no accessory muscle use. Lungs clear to auscultation without rhonchi, wheezes, rales CARDIAC Regular rate and rhythm, no edema. ABDOMINAL Soft, ND/NT. No evidence of fluid wave. No pulsatile masses on exam, rebound tenderness, Hernandez sign or pain over Mcburney's point. MUSCLES/EXTREMITIES No abnormal range of motion, no swelling. SKIN Warm, pink and dry. No rashes, dermatoses, petechiae or lesions. NEUROLOGICAL Speech is clear and appropriate. Normal level of consciousness. Gait and coordination are normal. 5/5 strength in all extremities. PSYCH Normal mood and affect. Judgement/competence is appropriate General Appearance: (+) obese Results Laboratory and Microbiology Lab and Micro Result Laboratory Tests Test 07/11/25 04:10 07/11/25 06:16 White Blood Count 11.2 K/uL (4.8-10.8) H Red Blood Count 5.34 MIL/uL (4.50-6.20) Hemoglobin 14.0 g/dL (14.0-18.0) Hematocrit 45.6 % (42-54) Mean Corpuscular Volume 85.4 fL (79-99) Mean Corpuscular Hemoglobin 26.2 pg (27.0-33.0) L Mean Corpuscular Hemoglobin Concent 30.7 g/dL (32.0-36.0) L Red Cell Distribution Width 14.7 % (11.0-15.5) Platelet Count 203 K/uL (130-400) Mean Platelet Volume 10.5 fL (7.5-10.5) Immature Granulocyte % (Auto) 0.5 % (0-1) Neutrophils (%) (Auto) 76.7 % (40.0-77.0) Lymphocytes (%) (Auto) 11.6 % (21.0-51.0) L Monocytes (%) (Auto) 8.8 % (3.0-13.0) Eosinophils (%) (Auto) 1.9 % (0.0-8.0) Basophils (%) (Auto) 0.5 % (0.0-5.0) Neutrophils # (Auto) 8.6 K/uL (1.8-7.7) H Lymphocytes # (Auto) 1.3 K/uL (1.0-4.8) Monocytes # (Auto) 1.0 K/uL (0.1-1.0) Eosinophils # (Auto) 0.21 K/uL (0.00-0.70) Basophils # (Auto) 0.06 K/uL (0.00-0.20) Absolute Immature Granulocyte (auto 0.06 K/uL (0-1) Nucleated Red Blood Cells 0.0 % (0.0-0.19) Red Blood Cell Morphology ANISO 1+ Sodium Level 137 mmol/L (136-145) Potassium Level 5.0 mmol/L (3.5-5.1) Chloride Level 99 mmol/L (101-111) L Carbon Dioxide Level 27 mmol/L (21-32) Blood Urea Nitrogen 27 mg/dL (7-18) H Creatinine 1.1 mg/dL (0.5-1.3) Glomerular Filtration Rate Calc 74 mL/min (>90) Random Glucose 259 mg/dL (70-105) H Lactic Acid Level 2.8 mmol/L (0.8-2.5) H 2.1 mmol/L (0.8-2.5) Total Calcium 9.5 mg/dL (8.5-10.1) Total Bilirubin 0.7 mg/dL (0.2-1.0) Direct Bilirubin 0.1 mg/dL (0.0-0.3) Aspartate Amino Transf (AST/SGOT) 38 U/L (10-37) H Alanine Aminotransferase (ALT/SGPT) 44 U/L (12-78) Alkaline Phosphatase 99 U/L (50-136) Troponin I High Sensitivity 13 ng/L (4-75) Total Protein 7.6 g/dL (6.0-8.3) Albumin 3.8 g/dL (3.5-5.0) Lipase 68 U/L (16-77) MDM 65-year-old male here for evaluation gastroenteritis. Get basic labs, give fluids, and reassess. Disposition pending results of labs and imaging. ED Course Orders Procedure Category Date Status Time 0.9%Nacl 1000ml (Ns PHA 07/11/25 In Process 1000ml) 04:00 Ondansetron 4mg Inj PHA 07/11/25 Complete (Zofran 4mg Inj) 04:00 Cbc With Differential LAB 07/11/25 Complete 04:00 Basic Metabolic Panel LAB 07/11/25 Complete 04:00 Lipase LAB 07/11/25 Complete 04:00 Lactic Acid LAB 07/11/25 Complete 04:00 12 Lead Ekg Tracing- EKG 07/11/25 Logged Technical 04:14 Troponin I High LAB 07/11/25 Complete Sensitivity 04:41 Dicyclomine Hcl PHA 07/11/25 Complete (Bentyl 20mg Tab) 05:00 Hepatic Function Panel LAB 07/11/25 Complete 05:22 Lactic Acid LAB 07/11/25 Complete 06:17 Current Medications Medications (Trade) Dose Ordered Sig/Sharif Route PRN Reason Start Time Stop Time Status Last Admin Dose Admin Dicyclomine HCl (Bentyl 20mg Tab) 20 mg ONCE ONCE PO 07/11/25 05:00 07/11/25 05:01 DC 07/11/25 05:03 Ondansetron HCl (zoFRAN 4MG INJ) 4 mg ONCE ONCE IVP 07/11/25 04:00 07/11/25 04:04 DC 07/11/25 04:17 Sodium Chloride 1,000 ml @ 0 mls/hr Q0M IV 07/11/25 04:00 08/10/25 03:59 07/11/25 04:18 Vital Signs Date Time Temp Pulse Resp B/P (MAP) Pulse Ox O2 Delivery O2 Flow Rate FiO2 07/11/25 05:22 94 18 134/59 97 Room Air* 0 21 07/11/25 04:26 98.8 91 18 156/75 98 Room Air* 0 21 07/11/25 03:58 96.6 99 20 160/83 97 Room Air Patient re-evaluated. States he feels much better. Lactic acid improved from 2.8 to 2.1. We will discharge home at this time. Discharge MDM Patient's prior external medical records from other ER visits were reviewed by me as indicated. Prior testing and results from previous visits were reviewed. Prior tests were taken into account with medical decision making and resource utilization, independent historian/historians were used to obtain complete medical history. I independently interpreted the test that were performed, results were reviewed by me and considered findings on radiology if ordered. Medical management and examination interpretation discussions were had by me with other qualified healthcare professionals as indicated for the patient's care. Labs and imaging reviewed with patient. All questions answered at this time. Patient advised to follow up with primary care physician in the next few days. Patient well-appearing, no acute distress. Vital signs stable. Will discharge at this time. DX & DISP Disposition: Discharge Departure Impression: Primary Impression: Gastroenteritis Condition: Stable Scripts Dicyclomine HCl (Bentyl) 10 Mg Cap 1 CAP PO Q6HPRN PRN for irritable bowel symptoms for 4 Days, #24 CAP 0 Refills Prov: ANNALISA LARIOS MD 07/11/25 Ondansetron (Ondansetron Odt) 4 Mg Tab.rapdis 1 TAB PO Q6HPRN PRN for nausea/vomiting for 4 Days, #16 TAB 0 Refills Prov: ANNALISA LARIOS MD 07/11/25 Referrals: HELLEN SCHULTZ MD (PCP) ANNALISA LARIOS MD Jul 11, 2025 04:49
[2025-07-11] MEDS: DICYCLOMINE HCL 20 MG TAB PO ONE (05:03)
[2025-07-11 05:42] LABS: ASPARTATE AMINOTRANSFERASE 38.0 U/L (10-37); TOTAL PROTEIN, SERUM 7.6 g/dL (6.0-8.3)
[2025-07-11 06:48] VITALS: BP 144/60; PULSE 79; RESP 18; TEMP 98; O2SAT 96
--- NOTE | 2025-07-11 06:49 | EKG ---
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
== END 2025-07-11 06:58 | disposition home or self-care (01) ==
LOC: EDH 03:56
DX: K52.9 Noninfective gastroenteritis and colitis, unspecified (principal); R11.10 Vomiting, unspecified; E11.9 Type 2 diabetes mellitus without complications; E78.00 Pure hypercholesterolemia, unspecified; I10 Essential (primary) hypertension; I25.10 Atherosclerotic heart disease of native coronary artery without angina pectoris; Z79.84 Long term (current) use of oral hypoglycemic drugs; Z79.82 Long term (current) use of aspirin; Z79.85 Long-term (current) use of injectable non-insulin antidiabetic drugs; Z79.899 Other long term (current) drug therapy; Z79.01 Long term (current) use of anticoagulants
CPT/HCPCS: 99284; 96374; 96361; 80076; 84484; 80048; 83690; 85025; 83605 ×2; 36415; 93005; J2405